=== PATIENT | female | born 1995 | race Two or more races ===

== ENCOUNTER 2017-11-15 08:46 | Emergency (ER) | payer BC, MEDICAID ==
[~2017-11-15] VITALS: Ht 162.6 cm; Wt 83.0 kg
[~2017-11-15 08:46] MED LIST: FLUT16SP2 NS; HYDR50CA; LAMO25TA40; LEVA15HF4 IH; LORA-512 PO; MAGCITRATE PO; MONT10TA21 PO; ONDA4TAB59 PO; PHEN-873 PO; QUET200T; RISP3TAB11
[2017-11-15] MEDS ORDERED: dexamethasone sod phosphate 10mg/ml inj PO STA (09:23)
[2017-11-15] MEDS ORDERED: ondansetron 4mg rapidly disintigrating tab PO ONE (09:25)
[2017-11-15] MEDS ORDERED: CLIN150C2 PO (10:18)
[2017-11-15 10:33] VITALS: BP 113/65
== END 2017-11-15 10:38 | disposition home or self-care (01) ==
LOC: ER 08:48
DX: J03.90 Acute tonsillitis, unspecified (principal); F12.10 Cannabis abuse, uncomplicated; Z79.899 Other long term (current) drug therapy; Z91.018 Allergy to other foods
CPT/HCPCS: 87081; 87880; 99284; J1100

== ENCOUNTER 2019-02-13 10:38 | Emergency (ER) | payer BC ==
[~2019-02-13] VITALS: Ht 160 cm; Wt 63.6 kg
[~2019-02-13 10:38] MED LIST changes: -MAGCITRATE PO; +MAGN296S68 PO; +PHEN-786 PO; -PHEN-873 PO
[2019-02-13 10:53] VITALS: BP 125/71
[2019-02-13 12:19] LABS: URINE HCG NEGATIVE (NEG)
--- NOTE | 2019-02-13 12:29 | NUR ---
BROTHER CALLED FROM [facility],
--- NOTE | 2019-02-13 12:30 | NUR ---
HE WOULD LIKE A PHONE CALL PRIOR TO HER DISCHARGE
== END 2019-02-13 12:42 | disposition home or self-care (01) ==
LOC: ER 10:39
DX: N91.2 Amenorrhea, unspecified (principal); F12.90 Cannabis use, unspecified, uncomplicated; Z98.890 Other specified postprocedural states; Z91.018 Allergy to other foods; Z79.899 Other long term (current) drug therapy
CPT/HCPCS: 81025; 99283

== ENCOUNTER 2020-02-18 21:58 | Inpatient (IN) | payer BC, MEDICAID ==
[~2020-02-18] VITALS: Ht 160 cm; Wt 57.3 kg
[~2020-02-18 21:58] MED LIST changes: -QUET200T; +QUET200T PO; -RISP3TAB11; +RISP3TAB11 PO
[2020-02-18] MEDS ORDERED: traZODone 50mg tablet PO PRN (22:10)
[2020-02-18] MEDS ORDERED: acetaminophen 325mg tablet PO PRN (22:10)
[2020-02-18] MEDS ORDERED: hydrOXYzine 25 MG tablet PO PRN (22:10)
[2020-02-18] MEDS ORDERED: mag hydrox/Alum hydrox/simeth 30ml oral suspension PO PRN (22:10)
[2020-02-18] MEDS ORDERED: magnesium hydroxide 30ml (MOM) UD suspension PO PRN (22:10)
[2020-02-18] MEDS ORDERED: LORazepam 1 MG tablet PO PRN (22:10)
[2020-02-18] MEDS ORDERED: quetiapine 100mg tablet PO PRN (22:10)
[2020-02-18] MEDS ORDERED: loperamide 2mg capsule PO PRN (22:10)
--- NOTE | 2020-02-18 22:23 | NUR ---
Admission Note: Patient was brought from [facility] after being placed on 5150 for Grave Disability. Pt was brought in by police after breaking into a cabin. Police stated that she was naked and soaking wet, making delusional statements about her body being controlled by her mom and brother. Pt was combative in the hospital and broke a firehydrant glass case. Pt arrived at 2210 and was asleep when she arrived. Pt would not wake up for assessments as she was medicated by Hospital staff in [place].
[2020-02-19] MEDS: acetaminophen 325mg tablet PO PRN (07:41)
[2020-02-19 07:56] LABS: HEMOGLOBIN A1C 5.3 % (4.5-6.2)
[2020-02-19 08:00] VITALS: BP 128/76
[2020-02-19 08:06] LABS: CHOL/HDL RATIO 3.7 (0.00-4.99); CHOLESTEROL 147 MG/DL (0-200); HDL CHOLESTEROL 40 MG/DL (35-60); LDL CHOLESTEROL 89 MG/DL (50-100); TRIGLYCERIDES 51 MG/DL (20-135)
[2020-02-19] MEDS: LORazepam 1 MG tablet PO PRN ×2 (10:55→23:32)
[2020-02-19] MEDS ORDERED: fluticasone nasal spray 16GM bottle NS PRN (13:25)
[2020-02-19] MEDS ORDERED: albuterol 2.5 MG/3 ML nebule NEB PRN (13:30)
[2020-02-19] MEDS ORDERED: ondansetron 4mg rapidly disintigrating tab PO PRN (15:30)
[2020-02-19 17:07] LABS: BASOPHILS # (AUTO) 0.1 X10'3 (0-0.2); BASOPHILS % (AUTO) 0.8 % (0-1); EOSINOPHILS # (AUTO) 0.1 X10'3 (0-0.9); EOSINOPHILS % (AUTO) 0.6 % (0-6); HEMATOCRIT 38.8 % (35.0-45.0); LYMPHOCYTES # (AUTO) 2.8 X10'3 (1.1-4.8); LYMPHOCYTES % (AUTO) 27.8 % (21-51); MEAN CORPUSCULAR HEMOGLOBIN 29.8 PG (27.0-31.0); MEAN CORPUSCULAR HGB CONC 33.4 g/dL (33.0-36.5); MEAN PLATELET VOLUME 8.6 FL (7.4-10.4); MONOCYTES % (AUTO) 9.9 % (2-12); NEUTROPHILS # (AUTO) 6.1 X10'3 (1.8-7.7); NEUTROPHILS % (AUTO) 60.9 % (42-75); PLATELET COUNT 264 X10'3 (140-440); RED BLOOD COUNT 4.36 X10'6 (4.20-5.60); RED CELL DISTRIBUTION WIDTH 12.8 % (11.5-14.5); WHITE BLOOD COUNT 10.1 X10'3 (4.5-11.0)
[2020-02-19] MEDS: diphenhydrAMINE 25mg capsule PO PRN (17:23)
[2020-02-19] MEDS: lurasidone 60mg tablet PO SCH (17:23)
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
[2020-02-19] MEDS ORDERED: ketorolac trometh. 30mg/ml inj. IM ONE ×3 (19:15→22:40)
[2020-02-19 20:08] VITALS: BP 116/74
[2020-02-19] MEDS: traZODone 50mg tablet PO PRN (20:10)
[2020-02-19] MEDS ORDERED: ketorolac trometh inj. 60 MG/2 ML VIAL IM ONE (22:20)
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
[2020-02-20] MEDS: haloperidol 5mg tablet PO PRN ×2 (00:38→20:57)
[2020-02-20] MEDS: diphenhydrAMINE 25mg capsule PO PRN ×2 (00:38→20:15)
[2020-02-20] MEDS: loratadine 10mg tablet PO SCH (07:58)
[2020-02-20] MEDS: acetaminophen 325mg tablet PO PRN ×2 (07:59→16:06)
[2020-02-20] MEDS ORDERED: hydrOXYzine 25 MG tablet PO PRN (09:05)
[2020-02-20 10:55] VITALS: BP 109/67
[2020-02-20] MEDS ORDERED: nicotine 21mg patch - 24 hr TD ONE (11:35)
[2020-02-20] MEDS: busPIRone 5mg tablet PO PRN ×2 (11:50→17:52)
[2020-02-20] MEDS: NICOTINE POLACRILEX 2 MG LOZENGE BC PRN ×2 (14:00→18:57)
[2020-02-20] MEDS: lurasidone 60mg tablet PO SCH (17:53)
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
[2020-02-20 20:00] VITALS: BP 126/76
[2020-02-20] MEDS: traZODone 50mg tablet PO PRN (20:15)
[2020-02-20 20:34] VITALS: BP 123/76
--- NOTE | 2020-02-21 00:55 | NUR ---
NURSING PROGRESS NOTE: Legal hold: 5150 Client on involuntary status for GD Report received from RN with use of SBAR Why are they here: Patient was brought from [facility] after being placed on 5150 for Grave Disability. Pt was brought in by police after breaking into a cabin. Police stated that she was naked and soaking wet, making delusional statements about her body being controlled by her mom and brother. Pt was combative in the hospital and broke a fire extinguisher glass case. Assessment What has happened this shift: Patient was up walking in the gray with little interaction with peers. Pt states during interview that she doing better tolerating some of her peers and feels being here is helping her. She denies having SI/HI and AH/VH. She dose not like the way Ativan sedates her when feeling anxious but the BuSpar and nicotine patch is working well. Pt is cooperative and med compliant. S/I, H/I: Denies A/VH: Denies Sleep: Napped ADL's: Independent Group attendance: N/A Were meds taken: Yes Any med S/E:None Mental Status Exam Appearance: Neat and clean Eye contact: Direct Behavior: Cooperative Speech: Normal rate and rhythm Mood: Anxious Affect: Constricted Thought process: Linear, tangential at times Thought Content: Wants to go home Cognition: A&OX4 Insight: Fair Judgment: Fair Interventions PRN's used: Benadryl,Trazodone,Haldol Therapeutic interventions: 1:1 assessment, established rapport, active listening, reality orientation, medication education, therapeutic environment, q15m safety checks Restraints/seclusion/emergency medication: None Justification of Continued Inpatient Treatment: Requires interruption of current crisis, medication adjustments and a safe and therapeutic environment to prevent further decompensation.
[2020-02-21] MEDS: NICOTINE POLACRILEX 2 MG LOZENGE BC PRN (05:47)
[2020-02-21] MEDS: busPIRone 5mg tablet PO PRN ×2 (06:39→12:47)
[2020-02-21 07:00] VITALS: BP 121/78
[2020-02-21] MEDS: loratadine 10mg tablet PO SCH (07:45)
[2020-02-21] MEDS ORDERED: nicotine 21mg patch - 24 hr TD SCH (08:00)
--- NOTE | 2020-02-21 10:00 | NUR ---
Group Therapy: Process Group This Clinicians goal for this process group were as follows: (1) Share psychoeducation about the cognitive behavioral triangle, specifically regarding the interrelationship of thoughts, feelings, and behaviors. (2) Introduce the concept of thinking errors, or cognitive distortions, as they contribute to unhelpful, unbalanced, and/or irrational thinking. (3) Identify several common cognitive distortions in group. (4) Process with Patients how they relate to the different cognitive distortions that were brought up within the group milieu. Patient identified experiencing the following levels of anxiety, depression, and anger/irritability while present in the group milieu. Anxiety: 03/07 Depression: 11/07 Anger irritability: 02/04 Patient presented as open and cooperative within the group milieu. Per this Clinician's impression, AEB Patient's comments in session, she was aware of how certain thoughts could either contribute to negative, or unwanted feelings, which--in turn--could lead to negative, or maladaptive behaviors. Patient reported that she was feeling some anxiety regarding her insurance situation, and incorporated this into insightful commentary within the group milieu, regarding how negative, unbalanced, unhelpful, or irrational thinking about this situation would not contribute to helping her feel better. She added that sometimes she would engage in negative, "What if..." thinking regarding her insurance situation which lead to increases in her anxiety. Aaron Fajardo MA, ZULEYMA Addendum: 02/21/20 at 1136 by Aaron Fajardo SS Amended: Links added.
--- NOTE | 2020-02-21 11:35 | NUR ---
DCP Presenting Issues: Per consultation w/attending physician, pt's will d/c today as there's no need for continue PHF stay. Attending physician requesting SS assistance w/dcp activities to ensure that pt has access to outpatient services and medication support. Interventions: SS met with pt and engaged her in dcp activities. Pt reports that she lives in [place] and will return to her sister's home following d/c. SS inquired about pt's health insurance, pt reports that she no longer has insurance thru her employer because she no longer works with that employer. Pt currently makes 14.50/hr and about 5917-3235/month. SS had t/c with [facility], per t/c [facility] will meet w/pt and have her complete an application for MediCal. SS also had t/c with [facility], to coordinate post-hospital f/u with PMD & referral to the PCN. Per t/c a triage nurse will rt SS call to schedule appointment for pt. SS consulted with attending physician re pt's access to samples of Latuda via [facility], per consultation, Dr. Smith will contact Dr. Fuentes @ [facility] to request for samples for pt. Pt's sister will pick her up @ 1:00 PM Addendum: 02/21/20 at 1209 by Susan Schreiber SS Amended: Links added.
[2020-02-21] MEDS ORDERED: LURA40TA3 PO (12:28)
[2020-02-21] MEDS ORDERED: BUSP-28 PO (12:28)
[2020-02-21] MEDS ORDERED: TRAZ-256 PO (12:28)
--- NOTE | 2020-02-21 14:24 | NUR ---
DISCHARGE NOTE: Pt is being discharged home to [facility]. Pt. denies SI. All belongings were inventoried and sent with the patient at discharge. Patient is discharged in stable condition. Pt. is a smoker and does not wish any nicotine replacement. Pt. to follow-up with Dr. Fuentes.
--- NOTE | 2020-02-21 16:52 | NUR ---
Pt's d/c, SS referral's closed. Susan Schreiber, [employer] Addendum: 02/21/20 at 1652 by Susan Schreiber SS Amended: Links added.
[2020-02-22 06:14] LABS: A/G RATIO 1.3 (0.7-1.7); ALBUMIN 4.3 g/dL (2.9-4.4); BETA GLOBULIN 0.9 g/dL (0.7-1.3); GAMMA GLOBULIN 1.3 g/dL (0.4-1.8); GLOBULIN, TOTAL 3.2 g/dL (2.2-3.9); M-SPIKE Not Observed g/dL (Not Observed); PROTEIN, TOTAL, SERUM 7.5 g/dL (6.0-8.5)
== END 2020-02-21 13:43 | disposition home or self-care (01) | DRG 753 ==
LOC: ADULT MH 22:00
PROVIDERS: ADMIT Psychiatry & Neurology Psychiatry; ATTEND Psychiatry & Neurology Psychiatry
DX: F31.2 Bipolar disorder, current episode manic severe with psychotic features (principal); F12.90 Cannabis use, unspecified, uncomplicated; J45.909 Unspecified asthma, uncomplicated; M79.18 Myalgia, other site; R11.0 Nausea; F17.210 Nicotine dependence, cigarettes, uncomplicated; Z79.899 Other long term (current) drug therapy; Z91.410 Personal history of adult physical and sexual abuse; Z63.4 Disappearance and death of family member
CPT/HCPCS: 36415; 80061; 83036; 84155; 84165; 85025; J1885; Q0163; Q0177

== ENCOUNTER 2020-03-02 17:19 | Emergency (ER) | payer MEDICAID, OTHER ==
[~2020-03-02] VITALS: Ht 162.6 cm; Wt 65.0 kg
[~2020-03-02 17:19] MED LIST changes: +BUSP-28 PO; -HYDR50CA; -LAMO25TA40; +LURA40TA3 PO; -MAGN296S68 PO; -MONT10TA21 PO; -ONDA4TAB59 PO; -PHEN-786 PO; -QUET200T PO; -RISP3TAB11 PO; +TRAZ-256 PO
--- NOTE | 2020-03-02 18:11 | NUR ---
pt is being very pushy about not wanting to stay here to long and that she needs somthing to eat right now. I told pt she has to wait until she evluated by one of our providers then we can ask them about food. she said ok then asked about going outside for a cigrette and i told her once shes in a bed she can leave and come back unless we discharg her. I also explained to her that she can leave anytime but she will need to sign ama paperwork.
[2020-03-02] MEDS ORDERED: hydrOXYzine 25 MG tablet PO ONE (19:10)
--- NOTE | 2020-03-02 19:27 | NUR ---
pt refused meds "does not want to take anything that will poision her body". Provider made aware
[2020-03-02 19:35] VITALS: BP 101/79
--- NOTE | 2020-03-02 19:55 | NUR ---
pt was discharged and left her medication here latuda and buspirone because she believes it was posioning her body. medications will be disosed of in med room.
== END 2020-03-02 19:37 | disposition home or self-care (01) ==
LOC: ER 17:19
DX: F41.9 Anxiety disorder, unspecified (principal); T50.995A Adverse effect of other drugs, medicaments and biological substances, initial encounter; J45.909 Unspecified asthma, uncomplicated; R56.9 Unspecified convulsions; F31.9 Bipolar disorder, unspecified; F17.200 Nicotine dependence, unspecified, uncomplicated; F12.90 Cannabis use, unspecified, uncomplicated; Z72.89 Other problems related to lifestyle; Z91.018 Allergy to other foods; Z79.899 Other long term (current) drug therapy; Y92.89 Other specified places as the place of occurrence of the external cause
CPT/HCPCS: 99281

== ENCOUNTER 2020-05-12 11:14 | Emergency (ER) | payer SELFPAY ==
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
--- NOTE | 2020-05-12 12:16 | NUR ---
i called rpd to let them know that she was spining and if they got other people to call in about her they may want to contact her.
== END 2020-05-12 12:17 | disposition left against medical advice (07) ==
LOC: EEVIPCON 11:15 → ER 11:15
DX: Z53.21 Procedure and treatment not carried out due to patient leaving prior to being seen by health care provider (principal)

== ENCOUNTER 2022-08-24 19:28 | Inpatient (IN) | payer MEDICAID, OTHER ==
[~2022-08-24] VITALS: Ht 162.6 cm; Wt 110.6 kg
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
[~2022-08-24 19:28] MED LIST changes: +LURA40TA2 PO; -LURA40TA3 PO; +calcium chloride 100 MG/1 ML inj IV ONE; +epiNEPHrine 0.1mg/ml 10ml syringe ONE; +rocuronium 10mg/ml inj IV ONE; +sodium bicarbonate (8.4%) 1 mEq/ml syringe ONE
[2022-08-24] MEDS ORDERED: epiNEPHrine 5 MG in NS 250ml IV.SOLN IV SCH (19:45)
[2022-08-24] MEDS: sodium bicarbonate (8.4%) inj. 50 MEQ in dextrose 5%-water 1,000 ML IV SCH (20:19)
[2022-08-24 20:22] VITALS: BP 184/129
[2022-08-24 20:42] LABS: ALANINE AMINOTRANSFERASE 107 U/L (12-78); ALBUMIN 2.1 G/DL (3.4-5.0); ALBUMIN/GLOBULIN RATIO 0.8 (1.1-1.5); ALKALINE PHOSPHATASE 96 IU/L (46-116); ANION GAP 24 (8-16); ASPARTATE AMINO TRANSFERASE 132 U/L (10-37); BLOOD UREA NITROGEN 12 MG/DL (7-18); BUN/CREATININE RATIO 9.4 (6.6-38.0); CALCIUM 8.7 MG/DL (8.5-10.1); CHLORIDE 109 MMOL/L (99-107); CREATININE 1.28 MG/DL (0.40-0.90); GLUCOSE 434 MG/DL (70-104); SODIUM 149 MMOL/L (135-145); TOTAL CARBON DIOXIDE 15.6 MMOL/L (24-32); TOTAL PROTEIN 4.8 G/DL (6.4-8.2); eGFR 50 ML/MIN
[2022-08-24 20:49] LABS: BILIRUBIN,TOTAL 0.1 MG/DL (0.1-1.0); ETHANOL < 0.010 GM/DL (0.0-0.010); POTASSIUM 4.3 MMOL/L (3.5-5.1)
[2022-08-24 21:18] LABS: HEMATOCRIT 30.7 % (35.0-45.0); HEMOGLOBIN 10.1 g/dl (12.0-16.0); MEAN CORPUSCULAR HEMOGLOBIN 27.9 PG (27.0-31.0); MEAN CORPUSCULAR HGB CONC 32.8 g/dL (33.0-36.5); MEAN CORPUSCULAR VOLUME 85.1 FL (78-98); MEAN PLATELET VOLUME 8.3 FL (7.4-10.4); PLATELET COUNT 170 X10'3 (140-440); RED BLOOD COUNT 3.61 X10'6 (4.20-5.60); RED CELL DISTRIBUTION WIDTH 15.1 % (11.5-14.5); WHITE BLOOD COUNT 19.8 X10'3 (4.5-11.0)
[2022-08-24] MEDS ORDERED: methylPREDNISolone sod succ 125mg/2ml vial IV STA (21:18)
[2022-08-24] MEDS ORDERED: metroNIDAZOLE-Flagyl 500mg/NS 100 ML IV STA (21:18)
[2022-08-24 21:24] LABS: LYMPHOCYTES % (AUTO) 43.6 % (21-51); MONOCYTES % (AUTO) 3.2 % (2-12); NEUTROPHILS % (AUTO) 52.2 % (42-75)
[2022-08-24 21:25] LABS: BASOPHILS % (AUTO) 0 % (0-1); EOSINOPHILS # (AUTO) 0.2 X10'3 (0-0.9); LYMPHOCYTES # (AUTO) 8.6 X10'3 (1.1-4.8); MONOCYTES # (AUTO) 0.6 X10'3 (0-0.9); NEUTROPHILS # (AUTO) 10.3 X10'3 (1.8-7.7)
[2022-08-24] MEDS ORDERED: ampicillin/sulbac 3gm/NS 100ml 100 ML IV SCH (21:30)
[2022-08-24 21:37] VITALS: BP 154/118
[2022-08-24 22:12] LABS: ANISOCYTOSIS 1+; NUCLEATED RED BLOOD CELLS 1 /100WBC (0-0); PLATELET ESTIMATE NORMAL; TOTAL CELLS COUNTED 100
[2022-08-24] MEDS ORDERED: NORepinephrine 8mg/ 250ml NS 250 ML IV ONE (22:16)
[2022-08-24] MEDS: normal saline 1000ml 1,000 ML IV SCH (22:20)
[2022-08-24] MEDS ORDERED: LIDOcaine 2% 10ml TOPICAL JELLY (Urojet) TP ONE (22:20)
[2022-08-24] MEDS ORDERED: magnesium hydroxide 30ml (MOM) UD suspension PO PRN (22:20)
[2022-08-24] MEDS ORDERED: ondansetron/PF 4mg/2ml inj IV PRN (22:20)
[2022-08-24] MEDS ORDERED: acetaminophen 325mg tablet PO PRN ×2 (22:20)
--- NOTE | 2022-08-24 22:24 | NUR ---
Per ER MD, 100 mg rocuronium administered for sedation. Per respiratory, pt appears to be fighting the vent.
[2022-08-24] MEDS ORDERED: PERFLUTREN PROTEIN-A MICROSPHR (Optison) 0.22 MG/ML 3ML VIAL IV PRN (22:30)
[2022-08-24 23:13] VITALS: BP 97/58
[2022-08-24] MEDS ORDERED: CISatracurium **Bolus** 2 mg/ml inj IV PRN (23:25)
[2022-08-24] MEDS ORDERED: CISatracurium besylate inj. 100 MG in normal saline 100ml IV soln 90 ML IV PRN (23:25)
[2022-08-25] VITALS (34 sets, daily range): BP systolic 82–132; BP diastolic 26–73
[2022-08-25 00:24] LABS: ABG BASE EXCESS -17.6 mmol/L (-2.0-2.0); ABG HCO3 16.2 mmol/L (22.0-26.0); ABG OXYGEN SATURATION 60.9 % (94-97); ABG PCO2 (T) 67.7 mmHg (32.0-45.0); ABG PO2 (T) 31.7 mmHg (75.0-100.0); ALLEN'S TEST Modified; FMetHb 0.3 % (0.0-1.5); FO2Hb 60.7 % (94-97); PATIENT TEMPERATURE 32.4; PEEP 10 cm H2O; RESPIRATORY RATE 28 b/min; TIDAL VOLUME 400 mL
[2022-08-25] MEDS: epiNEPHrine inj 10 MG in normal saline 250ml IV soln 240 ML IV SCH ×2 (01:05→20:18)
[2022-08-25] MEDS: piperacillin/tazo 3.375gm/50ml 50 ML IV SCH ×3 (03:07→17:18)
[2022-08-25 03:12] LABS: APTT 88 SECONDS (22-32)
[2022-08-25 03:13] LABS: D-DIMER > 35.20 MG/L FEU (0-0.50)
[2022-08-25 03:20] LABS: ALANINE AMINOTRANSFERASE 671 U/L (12-78); ALBUMIN 2.4 G/DL (3.4-5.0); ALBUMIN/GLOBULIN RATIO 0.8 (1.1-1.5); ALKALINE PHOSPHATASE 372 IU/L (46-116); ANION GAP 22 (8-16); BILIRUBIN,TOTAL 0.5 MG/DL (0.1-1.0); BLOOD UREA NITROGEN 17 MG/DL (7-18); BUN/CREATININE RATIO 9.6 (6.6-38.0); CALCIUM 7.3 MG/DL (8.5-10.1); CHLORIDE 106 MMOL/L (99-107); CREATININE 1.77 MG/DL (0.40-0.90); GLUCOSE 447 MG/DL (70-104); MAGNESIUM 2.8 MG/DL (1.5-2.4); SODIUM 147 MMOL/L (135-145); TOTAL CARBON DIOXIDE 18.8 MMOL/L (24-32); TOTAL PROTEIN 5.4 G/DL (6.4-8.2); eGFR 34 ML/MIN
[2022-08-25 03:23] LABS: PHOSPHORUS 12.2 MG/DL (2.3-4.5); POTASSIUM 3.9 MMOL/L (3.5-5.1)
[2022-08-25 03:24] LABS: ASPARTATE AMINO TRANSFERASE 1116 U/L (10-37)
--- NOTE | 2022-08-25 03:37 | NUR ---
[facility] contacted to find possible next of kin. Possible relative; Edvin StringerMaeganRae 05/24/1969. [phone]. [id number], [address] . [facility].
[2022-08-25 03:43] LABS: ABG BASE EXCESS -17.5 mmol/L (-2.0-2.0); ABG HCO3 13.6 mmol/L (22.0-26.0); ABG OXYGEN SATURATION 87.2 % (94-97); ABG PCO2 (T) 50.3 mmHg (32.0-45.0); ABG PO2 (T) 53.3 mmHg (75.0-100.0); ALLEN'S TEST POSITIVE; FCOHb 0.3 % (0.0-3.9); FMetHb 0.4 % (0.0-1.5); FO2Hb 86.6 % (94-97); PATIENT TEMPERATURE 34.7; PEEP 13 cm H2O; RESPIRATORY RATE 28 b/min; TIDAL VOLUME 400 mL; TOTAL HEMOGLOBIN 12.6 G/dl (12.0-16.0)
[2022-08-25 03:56] LABS: HEMATOCRIT 36.8 % (35.0-45.0); HEMOGLOBIN 11.9 g/dl (12.0-16.0); MEAN CORPUSCULAR HEMOGLOBIN 27.5 PG (27.0-31.0); MEAN CORPUSCULAR HGB CONC 32.5 g/dL (33.0-36.5); MEAN CORPUSCULAR VOLUME 84.8 FL (78-98); MEAN PLATELET VOLUME 7.5 FL (7.4-10.4); PLATELET COUNT 413 X10'3 (140-440); RED BLOOD COUNT 4.34 X10'6 (4.20-5.60); RED CELL DISTRIBUTION WIDTH 15.3 % (11.5-14.5)
[2022-08-25 04:01] LABS: WHITE BLOOD COUNT 50.1 X10'3 (4.5-11.0)
[2022-08-25 04:02] LABS: LYMPHOCYTES % (AUTO) 17.4 % (21-51); MONOCYTES % (AUTO) 1.4 % (2-12); NEUTROPHILS % (AUTO) 80.1 % (42-75)
[2022-08-25 04:05] LABS: BASOPHILS # (AUTO) 0.2 X10'3 (0-0.2); BASOPHILS % (AUTO) 0.7 % (0-1); EOSINOPHILS # (AUTO) 0.2 X10'3 (0-0.9); EOSINOPHILS % (AUTO) 0.4 % (0-6); LYMPHOCYTES # (AUTO) 8.5 X10'3 (1.1-4.8); MONOCYTES # (AUTO) 0.7 X10'3 (0-0.9); NEUTROPHILS # (AUTO) 38.8 X10'3 (1.8-7.7)
--- NOTE | 2022-08-25 04:17 | NUR ---
multiple attempts to reach Pts mother Phone numbers on record are [phone], , , unable to leave messages as voice mail not est up.
--- NOTE | 2022-08-25 04:34 | NUR ---
Spoke to Dr Mclaughlin reviewing labs including but not limited to WBC of 50.1, Plt 413, glucose of 442, trop 7157, ptt 88 and d-dimer of 35.2. reviewed current ventilator settings and ABG, reviewed that I am un able to reach a next of kin, no new orders at this time
--- NOTE | 2022-08-25 04:46 | NUR ---
Call placed to [facility], Reference number [id number]. They will be sending a care support representative to evaluate pt.
[2022-08-25] MEDS: sodium bicarbonate (8.4%) inj. 50 MEQ in dextrose 5%-water 1,000 ML IV SCH (05:28)
[2022-08-25] MEDS: NORepinephrine 8mg/ 250ml NS 250 ML IV PRN ×2 (05:29→17:12)
--- NOTE | 2022-08-25 05:35 | NUR ---
due to the inability to obtain a urine sample, blood work sent for send out drug screening
--- NOTE | 2022-08-25 06:15 | NUR ---
report given to rec rn plan of care reviewed
[2022-08-25] MEDS: enoxaparin 40mg/0.4ml syringe SUBCUT SCH (08:00)
[2022-08-25 08:06] LABS: BASOPHILS # (AUTO) 0.1 X10'3 (0-0.2); BASOPHILS % (AUTO) 0.2 % (0-1); EOSINOPHILS % (AUTO) 0.1 % (0-6); MEAN PLATELET VOLUME 7.6 FL (7.4-10.4)
[2022-08-25 08:09] LABS: LYMPHOCYTES # (AUTO) 3.1 X10'3 (1.1-4.8); LYMPHOCYTES % (AUTO) 6.5 % (21-51); MONOCYTES # (AUTO) 1.8 X10'3 (0-0.9); MONOCYTES % (AUTO) 3.7 % (2-12); NEUTROPHILS # (AUTO) 42.9 X10'3 (1.8-7.7); NEUTROPHILS % (AUTO) 89.5 % (42-75); PLATELET COUNT 408 X10'3 (140-440); RED CELL DISTRIBUTION WIDTH 16.5 % (11.5-14.5)
[2022-08-25 08:15] LABS: ABG BASE EXCESS -17.3 mmol/L (-2.0-2.0); ABG OXYGEN SATURATION 94.7 % (94-97); ABG PCO2 (T) 47.3 mmHg (32.0-45.0); ABG PO2 (T) 77.1 mmHg (75.0-100.0); ALLEN'S TEST POSITIVE; FCOHb 0.3 % (0.0-3.9); FMetHb 0.4 % (0.0-1.5); PATIENT TEMPERATURE 36.1; PEEP 15 cm H2O; RESPIRATORY RATE 28 b/min; TIDAL VOLUME 450 mL; TOTAL HEMOGLOBIN 12.1 G/dl (12.0-16.0)
[2022-08-25 08:17] LABS: ALANINE AMINOTRANSFERASE 748 U/L (12-78); ALBUMIN 2.4 G/DL (3.4-5.0); ALBUMIN/GLOBULIN RATIO 0.9 (1.1-1.5); ALKALINE PHOSPHATASE 258 IU/L (46-116); ANION GAP 21 (8-16); BILIRUBIN,TOTAL 0.7 MG/DL (0.1-1.0); BLOOD UREA NITROGEN 24 MG/DL (7-18); BUN/CREATININE RATIO 9.9 (6.6-38.0); CALCIUM 6.8 MG/DL (8.5-10.1); CHLORIDE 105 MMOL/L (99-107); CREATININE 2.43 MG/DL (0.40-0.90); MAGNESIUM 2.1 MG/DL (1.5-2.4); POTASSIUM 3.4 MMOL/L (3.5-5.1); SODIUM 144 MMOL/L (135-145); TOTAL CARBON DIOXIDE 17.6 MMOL/L (24-32); TOTAL PROTEIN 5.1 G/DL (6.4-8.2); eGFR 24 ML/MIN
[2022-08-25 08:20] LABS: ASPARTATE AMINO TRANSFERASE 1385 U/L (10-37); GLUCOSE 511 MG/DL (70-104); PHOSPHORUS 9.3 MG/DL (2.3-4.5)
[2022-08-25] MEDS ORDERED: dextrose 50%-water 50ml dispensing syringe IV PRN (08:20)
[2022-08-25] MEDS: Insulin Reg/NS 100units/100mL 100 ML IV SCH ×3 (08:25→23:09)
[2022-08-25 08:39] LABS: HEMATOCRIT 34.1 % (35.0-45.0); HEMOGLOBIN 10.9 g/dl (12.0-16.0); MEAN CORPUSCULAR HEMOGLOBIN 26.9 PG (27.0-31.0); MEAN CORPUSCULAR HGB CONC 31.9 g/dL (33.0-36.5); MEAN CORPUSCULAR VOLUME 84.4 FL (78-98); RED BLOOD COUNT 4.05 X10'6 (4.20-5.60); WHITE BLOOD COUNT 50.7 X10'3 (4.5-11.0)
[2022-08-25 08:49] LABS: APTT 44 SECONDS (22-32)
[2022-08-25 09:05] LABS: ANISOCYTOSIS 1+; PLATELET ESTIMATE NORMAL; TOTAL CELLS COUNTED 100
[2022-08-25 09:11] LABS: NUCLEATED RED BLOOD CELLS 1 /100WBC (0-0)
[2022-08-25 09:12] LABS: BURR CELLS FEW; POIKILOCYTOSIS FEW; SCHISTOCYTES FEW
[2022-08-25 09:13] LABS: POLYCHROMASIA FEW
[2022-08-25] MEDS ORDERED: sodium bicarbonate (8.4%) inj. 1 MEQ/ML ML ONE ×2 (10:13→13:30)
[2022-08-25] MEDS: famotidine/PF 10 mg/ml inj IV SCH ×2 (10:38→20:18)
[2022-08-25] MEDS ORDERED: sodium bicarbonate (8.4%) inj. 150 MEQ in dextrose 5%-water 1,000 ML IV SCH (10:47)
--- NOTE | 2022-08-25 11:00 | NUR ---
Initial: Pt s/p cardiac arrest in the field, now intubated. Per MD, in discussion w/ donor network and concern for brain . Pt receiving NaBicarb/D5 at 100ml/hr (408kcals). TF recs below in case to begin TF. No wounds noted. Will continue to monitor. Recs: 1. IF TF; Continuous TF using Vital HP at 60ml/hr goal to provide 1440ml volume, 1440kcals, 126g protein, 1204ml free water 2. IF TF; Additional water flush 75ml Q4H 3. IF TF; PALB Q / 4. Routine bowel care 5. Daily wts Addendum: 08/25/22 at [address] Amended: Links added.
[2022-08-25] MEDS: sodium bicarbonate (8.4%) inj. 150 MEQ in dextrose 5%-water 850 ML IV SCH ×3 (11:07→23:49)
--- NOTE | 2022-08-25 11:35 | NUR ---
Wound care note: Wound care was asked to see patient for a low roland skin assessment. Patient is being evaluated by donor network. I spoke with bedside RN Pati Camacho. No WOC needs at this time. Please notify wound care if any further needs arise.
[2022-08-25] MEDS: normal saline 1000ml 1,000 ML IV SCH (11:40)
[2022-08-25 11:43] LABS: RESPIRATORY RATE 28 b/min; TIDAL VOLUME 400 mL
[2022-08-25 11:44] LABS: ABG PCO2 (T) 129.1 mmHg (32.0-45.0); ABG PO2 (T) 46.4 mmHg (75.0-100.0)
[2022-08-25 11:45] LABS: ABG OXYGEN SATURATION 54.9 % (94-97); FCOHb 0.5 % (0.0-3.9); FMetHb 0.1 % (0.0-1.5); FO2Hb 54.6 % (94-97); TOTAL HEMOGLOBIN 11.5 G/dl (12.0-16.0)
[2022-08-25] MEDS: insulin Lispro (HumaLOG) vial - multi-dose SQ SCH ×2 (12:00→17:00)
[2022-08-25 13:00] LABS: ABG BASE EXCESS -14.1 mmol/L (-2.0-2.0); ABG HCO3 15.2 mmol/L (22.0-26.0); ABG OXYGEN SATURATION 92.9 % (94-97); ABG PCO2 (T) 48.2 mmHg (32.0-45.0); ALLEN'S TEST POSITIVE; FCOHb 0.3 % (0.0-3.9); FMetHb 0.5 % (0.0-1.5); FO2Hb 92.2 % (94-97); PATIENT TEMPERATURE 36.1; RESPIRATORY RATE 28 b/min; TIDAL VOLUME 400 mL; TOTAL HEMOGLOBIN 11.7 G/dl (12.0-16.0)
[2022-08-25] MEDS ORDERED: UNABLE TO OBTAIN (15:31)
[2022-08-25 15:57] LABS: ABG BASE EXCESS -10.6 mmol/L (-2.0-2.0); ABG OXYGEN SATURATION 95.8 % (94-97); ABG PCO2 (T) 42.7 mmHg (32.0-45.0); ABG PO2 (T) 76.8 mmHg (75.0-100.0); ALLEN'S TEST POSITIVE; FCOHb 0.3 % (0.0-3.9); FMetHb 0.5 % (0.0-1.5); PEEP 15 cm H2O; RESPIRATORY RATE 28 b/min; TIDAL VOLUME 400 mL; TOTAL HEMOGLOBIN 11.5 G/dl (12.0-16.0)
--- NOTE | 2022-08-25 18:35 | NUR ---
I have received report and assumed care of pt, reviewed Labs, test results, Md orders and various tests. EF of 55-60% EEG electrocerebral silent, Titrating Epinephrine and Levophed drip as ordered per MD orders via CVL. Insulin drip in place for glucose control.
--- NOTE | 2022-08-25 21:00 | NUR ---
hs cares complete, frequent turning side to side as tolerated to maintain skin integrity.
[2022-08-26] VITALS (35 sets, daily range): BP systolic 68–129; BP diastolic 33–64
--- NOTE | 2022-08-26 01:00 | NUR ---
no changes in pts condition noted
[2022-08-26] MEDS: piperacillin/tazo 3.375gm/50ml 50 ML IV SCH ×3 (02:02→17:57)
[2022-08-26 02:14] LABS: BASOPHILS # (AUTO) 0.1 X10'3 (0-0.2); BASOPHILS % (AUTO) 0.2 % (0-1); EOSINOPHILS % (AUTO) 0 % (0-6); HEMATOCRIT 28.4 % (35.0-45.0); HEMOGLOBIN 9.2 g/dl (12.0-16.0); LYMPHOCYTES % (AUTO) 8.2 % (21-51); MEAN CORPUSCULAR HEMOGLOBIN 26.7 PG (27.0-31.0); MEAN CORPUSCULAR HGB CONC 32.4 g/dL (33.0-36.5); MEAN CORPUSCULAR VOLUME 82.5 FL (78-98); MEAN PLATELET VOLUME 7.6 FL (7.4-10.4); MONOCYTES # (AUTO) 0.9 X10'3 (0-0.9); MONOCYTES % (AUTO) 2.5 % (2-12); NEUTROPHILS # (AUTO) 32.8 X10'3 (1.8-7.7); NEUTROPHILS % (AUTO) 89.1 % (42-75); RED BLOOD COUNT 3.44 X10'6 (4.20-5.60); RED CELL DISTRIBUTION WIDTH 15.3 % (11.5-14.5)
[2022-08-26] MEDS: NORepinephrine 8mg/ 250ml NS 250 ML IV PRN ×2 (02:23→05:07)
[2022-08-26 02:32] LABS: ALANINE AMINOTRANSFERASE 713 U/L (12-78); ALBUMIN 1.8 G/DL (3.4-5.0); ALBUMIN/GLOBULIN RATIO 0.8 (1.1-1.5); ALKALINE PHOSPHATASE 66 IU/L (46-116); ANION GAP 12 (8-16); ASPARTATE AMINO TRANSFERASE 882 U/L (10-37); BILIRUBIN,TOTAL 0.8 MG/DL (0.1-1.0); BLOOD UREA NITROGEN 36 MG/DL (7-18); BUN/CREATININE RATIO 10.6 (6.6-38.0); CALCIUM 6.5 MG/DL (8.5-10.1); CHLORIDE 105 MMOL/L (99-107); CREATININE 3.39 MG/DL (0.40-0.90); GLUCOSE 92 MG/DL (70-104); MAGNESIUM 1.2 MG/DL (1.5-2.4); PHOSPHORUS 3.6 MG/DL (2.3-4.5); POTASSIUM 3.5 MMOL/L (3.5-5.1); SODIUM 148 MMOL/L (135-145); TOTAL CARBON DIOXIDE 31.1 MMOL/L (24-32); TOTAL PROTEIN 4.2 G/DL (6.4-8.2); eGFR 16 ML/MIN
[2022-08-26 02:53] LABS: WHITE BLOOD COUNT 36.8 X10'3 (4.5-11.0)
[2022-08-26 02:54] LABS: PLATELET COUNT 184 X10'3 (140-440)
[2022-08-26 03:21] LABS: ABG BASE EXCESS 2.1 mmol/L (-2.0-2.0); ABG HCO3 26.4 mmol/L (22.0-26.0); ABG OXYGEN SATURATION 95.4 % (94-97); ABG PCO2 (T) 38.9 mmHg (32.0-45.0); ABG PO2 (T) 71.9 mmHg (75.0-100.0); ALLEN'S TEST Modified; FCOHb 0.3 % (0.0-3.9); FMetHb 0.4 % (0.0-1.5); FO2Hb 94.7 % (94-97); PATIENT TEMPERATURE 36.4; PEEP 15 cm H2O; RESPIRATORY RATE 28 b/min; TIDAL VOLUME 450 mL; TOTAL HEMOGLOBIN 10.1 G/dl (12.0-16.0)
[2022-08-26] MEDS: sodium bicarbonate (8.4%) inj. 150 MEQ in dextrose 5%-water 850 ML IV SCH ×2 (05:08→15:43)
[2022-08-26] MEDS: insulin Lispro (HumaLOG) vial - multi-dose SQ SCH ×2 (06:22→06:24)
[2022-08-26 07:55] LABS: APTT 37 SECONDS (22-32)
[2022-08-26] MEDS: famotidine/PF 10 mg/ml inj IV SCH ×2 (07:56→20:25)
[2022-08-26] MEDS: mineral oil/petrolatum ophthal oint EACHEYE SCH ×2 (07:57→14:00)
[2022-08-26] MEDS: enoxaparin 40mg/0.4ml syringe SUBCUT SCH (08:00)
[2022-08-26] MEDS ORDERED: phenylephrine inj 50 MG in normal saline 250ml IV solN IV SCH (10:45)
[2022-08-26] MEDS ORDERED: vasopressin inj. 40 UNIT in dextrose 5%-water 50ml 38 ML IV SCH (13:35)
[2022-08-26] MEDS ORDERED: VASOPRESSIN IV SCH (13:39)
[2022-08-26] MEDS ORDERED: NORMAL SALINE IV SCH (13:39)
[2022-08-26] MEDS ORDERED: vasopressin inj. 40 UNIT in normal saline 50ml IV soln 38 ML IV SCH (13:42)
[2022-08-26] MEDS ORDERED: magnesium 4gm in 100ml NS 100 ML IV ONE (13:45)
[2022-08-26 14:42] LABS: CREATINE KINASE 1523 U/L (26-192)
[2022-08-26] MEDS ORDERED: NS IV SCH (14:45)
[2022-08-26] MEDS ORDERED: LEVOTHYROXINE IV SCH (14:45)
[2022-08-26 14:53] LABS: BASOPHILS % (AUTO) 0.2 % (0-1); EOSINOPHILS % (AUTO) 0.1 % (0-6); HEMATOCRIT 26.9 % (35.0-45.0); HEMOGLOBIN 8.7 g/dl (12.0-16.0); LYMPHOCYTES # (AUTO) 1.8 X10'3 (1.1-4.8); LYMPHOCYTES % (AUTO) 7.2 % (21-51); MEAN CORPUSCULAR HEMOGLOBIN 26.7 PG (27.0-31.0); MEAN CORPUSCULAR HGB CONC 32.3 g/dL (33.0-36.5); MEAN CORPUSCULAR VOLUME 82.6 FL (78-98); MONOCYTES # (AUTO) 0.5 X10'3 (0-0.9); NEUTROPHILS # (AUTO) 22.8 X10'3 (1.8-7.7); NEUTROPHILS % (AUTO) 90.5 % (42-75); PLATELET COUNT 110 X10'3 (140-440); RED BLOOD COUNT 3.25 X10'6 (4.20-5.60); RED CELL DISTRIBUTION WIDTH 15.5 % (11.5-14.5)
[2022-08-26] MEDS ORDERED: NORepinephrine 8mg/ 250ml NS 250 ML IV PRN (14:55)
[2022-08-26 14:57] LABS: WHITE BLOOD COUNT 25.2 X10'3 (4.5-11.0)
[2022-08-26] MEDS: epiNEPHrine 5 MG in NS 250ml IV.SOLN IV SCH (15:00)
[2022-08-26 15:02] LABS: APTT 39 SECONDS (22-32)
[2022-08-26] MEDS ORDERED: LEVOTHYROXINE SODIUM IV ONE (15:15)
[2022-08-26] MEDS ORDERED: furosemide 40mg/4ml inj IV ONE ×2 (15:20→19:30)
[2022-08-26] MEDS ORDERED: albumin (Human) 5% 250ml 250 ML IV ONE (15:20)
[2022-08-26] MEDS ORDERED: albuterol 2.5 MG/3 ML nebule NEB PRN ×2 (15:25→21:00)
[2022-08-26] MEDS ORDERED: albuterol 2.5 MG/3 ML nebule NEB SCH ×2 (15:25→16:00)
[2022-08-26] MEDS ORDERED: Insulin Reg/NS 100units/100mL 100 ML IV PRN (15:26)
[2022-08-26] MEDS ORDERED: calcium chloride inj. 1,000 MG in normal saline 100ml BAG IV PRN (15:30)
[2022-08-26 15:36] LABS: ALANINE AMINOTRANSFERASE 743 U/L (12-78); ALBUMIN 1.6 G/DL (3.4-5.0); ALBUMIN/GLOBULIN RATIO 0.6 (1.1-1.5); ALKALINE PHOSPHATASE 66 IU/L (46-116); ANION GAP 19 (8-16); ASPARTATE AMINO TRANSFERASE 822 U/L (10-37); BILIRUBIN,DIRECT 0.8 MG/DL (0-0.3); BILIRUBIN,TOTAL 1.1 MG/DL (0.1-1.0); BLOOD UREA NITROGEN 47 MG/DL (7-18); BUN/CREATININE RATIO 10.9 (6.6-38.0); CHLORIDE 101 MMOL/L (99-107); CREATININE 4.33 MG/DL (0.40-0.90); GLUCOSE 105 MG/DL (70-104); LIPASE 1311 U/L (73-393); MAGNESIUM 1.2 MG/DL (1.5-2.4); POTASSIUM 4.5 MMOL/L (3.5-5.1); SODIUM 147 MMOL/L (135-145); TOTAL CARBON DIOXIDE 26.9 MMOL/L (24-32); TOTAL PROTEIN 4.2 G/DL (6.4-8.2); eGFR 12 ML/MIN
[2022-08-26 15:54] LABS: CREATINE KINASE 1271 U/L (26-192)
[2022-08-26 15:55] LABS: AMYLASE 1115 U/L (25-115)
[2022-08-26] MEDS ORDERED: sodium phosphate inj. 30 MMOL in dextrose 5%-water 250 ML IV PRN (16:30)
[2022-08-26] MEDS ORDERED: magnesium 4gm in 100ml NS 100 ML IV PRN (16:30)
[2022-08-26] MEDS ORDERED: magnesium 2GM in 50ml NS 50 ML IV PRN (16:30)
[2022-08-26] MEDS ORDERED: sodium phosphate inj. 15 MMOL in dextrose 5%-water 250 ML IV PRN (16:30)
[2022-08-26] MEDS ORDERED: LEVOTHYROXINE SODIUM 100 MCG/5 ML injection IV ONE (16:35)
[2022-08-26] MEDS: NORMAL SALINE IV SCH (16:46)
[2022-08-26] MEDS: LEVOTHYROXINE IV SCH (16:46)
[2022-08-26] MEDS ORDERED: ipratropium/albuterol 3ml nebule NEB SCH (17:00)
[2022-08-26] MEDS ORDERED: ipratropium 0.5 MG/2.5ML nebule IH SCH ×2 (17:00→19:00)
[2022-08-26] MEDS: WATER IV SCH (17:01)
[2022-08-26] MEDS: DEXTROSE 5% IV SCH (17:01)
[2022-08-26] MEDS: METHYLPREDNISOLONE SOD SUCC IV SCH (17:01)
[2022-08-26 17:13] LABS: ABG BASE EXCESS -2.7 mmol/L (-2.0-2.0); ABG HCO3 25.8 mmol/L (22.0-26.0); ABG OXYGEN SATURATION 91.7 % (94-97); ABG PCO2 (T) 66.6 mmHg (32.0-45.0); ABG PO2 (T) 72.7 mmHg (75.0-100.0); FCOHb 0.3 % (0.0-3.9); FMetHb 0.6 % (0.0-1.5); FO2Hb 90.9 % (94-97); PEEP 8 cm H2O; RESPIRATORY RATE 20 b/min; TIDAL VOLUME 425 mL; TOTAL HEMOGLOBIN 9.5 G/dl (12.0-16.0)
[2022-08-26] MEDS ORDERED: ipratropium/albuterol 3ml nebule ONE (17:20)
[2022-08-26] MEDS ORDERED: ipratropium/albuterol 3ml nebule NEB PRN (17:20)
[2022-08-26] MEDS: polyvinyl alcohol ophthalmic drops 15ml bottle EACHEYE SCH ×5 (17:24→23:52)
[2022-08-26] MEDS ORDERED: glucagon, human recombinant 1mg kit SUBCUT PRN (17:30)
[2022-08-26] MEDS ORDERED: dextrose 50%-water 50ml dispensing syringe IV PRN ×2 (17:30)
[2022-08-26] MEDS ORDERED: POTASSIUM PHOSPHATE IV PRN (17:45)
[2022-08-26] MEDS ORDERED: NORMAL SALINE IV PRN ×2 (17:45)
[2022-08-26] MEDS ORDERED: POTASSIUM PHOSHATE IV PRN (17:45)
[2022-08-26] MEDS ORDERED: potassium phosphate inj 15 MMOL in NS 250ml IV soln 250 ML IV PRN (17:45)
[2022-08-26] MEDS ORDERED: CALCIUM GLUC 1gm/50ml NACL,iso 50 ML IV ONE (18:10)
[2022-08-26] MEDS ORDERED: albumin (human) 25% 100ml IV 100 ML IV ONE ×2 (18:21→19:30)
[2022-08-26] MEDS: NORepinephrine inj. 32 MG in normal saline 250ml IV soln 218 ML IV SCH (18:32)
[2022-08-26 18:36] LABS: ABG BASE EXCESS -4.4 mmol/L (-2.0-2.0); ABG HCO3 22.7 mmol/L (22.0-26.0); ABG OXYGEN SATURATION 92.6 % (94-97); ABG PCO2 (T) 56.1 mmHg (32.0-45.0); ABG PO2 (T) 80.2 mmHg (75.0-100.0); FCOHb 0.3 % (0.0-3.9); FMetHb 0.7 % (0.0-1.5); FO2Hb 91.7 % (94-97); PATIENT TEMPERATURE 38.6; PEEP 8 cm H2O; RESPIRATORY RATE 26 b/min; TIDAL VOLUME 425 mL; TOTAL HEMOGLOBIN 9.3 G/dl (12.0-16.0)
[2022-08-26] MEDS ORDERED: sodium bicarbonate (8.4%) 1 mEq/ml syringe IV ONE (19:00)
[2022-08-26] MEDS ORDERED: sodium bicarbonate (8.4%) inj. 1 MEQ/ML ML ONE (19:03)
[2022-08-26] MEDS: PHENYLEPHRINE IV PRN ×2 (19:21→22:00)
[2022-08-26] MEDS: NORMAL SALINE IV PRN ×2 (19:21→22:00)
[2022-08-26 20:54] LABS: BASOPHILS # (AUTO) 0.1 X10'3 (0-0.2); BASOPHILS % (AUTO) 0.4 % (0-1); EOSINOPHILS % (AUTO) 0.1 % (0-6); LYMPHOCYTES # (AUTO) 2.4 X10'3 (1.1-4.8); LYMPHOCYTES % (AUTO) 11.2 % (21-51); MEAN CORPUSCULAR HEMOGLOBIN 26.6 PG (27.0-31.0); MEAN CORPUSCULAR VOLUME 83.1 FL (78-98); MEAN PLATELET VOLUME 8.4 FL (7.4-10.4); MONOCYTES # (AUTO) 0.8 X10'3 (0-0.9); MONOCYTES % (AUTO) 3.9 % (2-12); NEUTROPHILS # (AUTO) 18.2 X10'3 (1.8-7.7); NEUTROPHILS % (AUTO) 84.4 % (42-75); PLATELET COUNT 87 X10'3 (140-440); RED BLOOD COUNT 2.58 X10'6 (4.20-5.60); RED CELL DISTRIBUTION WIDTH 15.9 % (11.5-14.5); WHITE BLOOD COUNT 21.5 X10'3 (4.5-11.0)
[2022-08-26 20:58] LABS: HEMATOCRIT 21.4 % (35.0-45.0); HEMOGLOBIN 6.9 g/dl (12.0-16.0)
[2022-08-26] MEDS ORDERED: insulin glargine (Lantus) pen - multi-dose SQ SCH (21:00)
[2022-08-26] MEDS: albuterol 2.5 MG/3 ML nebule NEB SCH (21:02)
[2022-08-26] MEDS: ipratropium 0.5 MG/2.5ML nebule IH SCH (21:02)
[2022-08-26 21:06] LABS: APTT 48 SECONDS (22-32)
[2022-08-26 21:13] LABS: ALANINE AMINOTRANSFERASE 579 U/L (12-78); ALBUMIN 2.7 G/DL (3.4-5.0); ALBUMIN/GLOBULIN RATIO 1.2 (1.1-1.5); ALKALINE PHOSPHATASE 64 IU/L (46-116); ANION GAP 24 (8-16); ASPARTATE AMINO TRANSFERASE 639 U/L (10-37); BILIRUBIN,TOTAL 1.3 MG/DL (0.1-1.0); BLOOD UREA NITROGEN 49 MG/DL (7-18); BUN/CREATININE RATIO 10.8 (6.6-38.0); CALCIUM 6.3 MG/DL (8.5-10.1); CHLORIDE 99 MMOL/L (99-107); CREATININE 4.54 MG/DL (0.40-0.90); GLUCOSE 90 MG/DL (70-104); POTASSIUM 5.3 MMOL/L (3.5-5.1); SODIUM 147 MMOL/L (135-145); TOTAL CARBON DIOXIDE 24.5 MMOL/L (24-32); eGFR 12 ML/MIN
[2022-08-26 21:22] LABS: BILIRUBIN,DIRECT 0.9 MG/DL (0-0.3); CKMB RELATIVE INDEX 2.4 RATIO (0-2.5); CREATINE KINASE 981 U/L (26-192); MAGNESIUM 2.4 MG/DL (1.5-2.4); PHOSPHORUS 7.6 MG/DL (2.3-4.5)
[2022-08-26 21:25] LABS: PLATELET ESTIMATE DECREASED; TOTAL CELLS COUNTED 100
[2022-08-26 21:26] LABS: POIKILOCYTOSIS FEW; TOXIC GRANULATION 1+
[2022-08-26 21:27] LABS: SMUDGE CELLS 1+; TOXIC VACUOLATION FEW
[2022-08-26 21:28] LABS: POLYCHROMASIA FEW
[2022-08-27] VITALS (34 sets, daily range): BP systolic 93–138; BP diastolic 34–66
[2022-08-27] MEDS: albuterol 2.5 MG/3 ML nebule NEB SCH ×8 (00:03→21:45)
[2022-08-27 00:08] LABS: ABG BASE EXCESS -6.1 mmol/L (-2.0-2.0); ABG HCO3 20.4 mmol/L (22.0-26.0); ABG OXYGEN SATURATION 91.4 % (94-97); FCOHb 0.3 % (0.0-3.9); FMetHb 0.6 % (0.0-1.5); FO2Hb 90.6 % (94-97); PATIENT TEMPERATURE 37.9; PEEP 8 cm H2O; RESPIRATORY RATE 32 b/min; TIDAL VOLUME 400 mL; TOTAL HEMOGLOBIN 8.2 G/dl (12.0-16.0)
[2022-08-27] MEDS: epiNEPHrine 5 MG in NS 250ml IV.SOLN IV SCH ×3 (00:16→18:48)
[2022-08-27] MEDS ORDERED: furosemide 40mg/4ml inj IV ONE (00:25)
[2022-08-27] MEDS: vasopressin inj. 40 UNIT in normal saline 50ml IV soln 38 ML IV PRN ×2 (00:33→00:34)
[2022-08-27] MEDS: polyvinyl alcohol ophthalmic drops 15ml bottle EACHEYE SCH ×12 (01:26→23:24)
[2022-08-27] MEDS: PHENYLEPHRINE IV PRN ×3 (01:54→11:37)
[2022-08-27] MEDS: NORMAL SALINE IV PRN ×3 (01:54→11:37)
[2022-08-27] MEDS ORDERED: acetaZOLAMIDE IV 500mg inj IV ONE (02:00)
[2022-08-27] MEDS: piperacillin/tazo 3.375gm/50ml 50 ML IV SCH ×3 (02:12→18:49)
[2022-08-27] MEDS: NORepinephrine inj. 32 MG in normal saline 250ml IV soln 218 ML IV SCH (02:13)
[2022-08-27 02:44] LABS: BASOPHILS # (AUTO) 0.1 X10'3 (0-0.2); BASOPHILS % (AUTO) 0.4 % (0-1); EOSINOPHILS % (AUTO) 0.2 % (0-6); HEMOGLOBIN 7.4 g/dl (12.0-16.0); LYMPHOCYTES # (AUTO) 3.3 X10'3 (1.1-4.8); LYMPHOCYTES % (AUTO) 15.4 % (21-51); MEAN CORPUSCULAR HEMOGLOBIN 27.2 PG (27.0-31.0); MEAN CORPUSCULAR HGB CONC 32.3 g/dL (33.0-36.5); MEAN PLATELET VOLUME 8.5 FL (7.4-10.4); MONOCYTES # (AUTO) 0.7 X10'3 (0-0.9); MONOCYTES % (AUTO) 3.1 % (2-12); NEUTROPHILS # (AUTO) 17.2 X10'3 (1.8-7.7); NEUTROPHILS % (AUTO) 80.9 % (42-75); PLATELET COUNT 87 X10'3 (140-440); RED BLOOD COUNT 2.73 X10'6 (4.20-5.60); RED CELL DISTRIBUTION WIDTH 15.6 % (11.5-14.5); WHITE BLOOD COUNT 21.3 X10'3 (4.5-11.0)
[2022-08-27 02:58] LABS: ALANINE AMINOTRANSFERASE 521 U/L (12-78); ALBUMIN 2.4 G/DL (3.4-5.0); ALKALINE PHOSPHATASE 74 IU/L (46-116); ANION GAP 28 (8-16); ASPARTATE AMINO TRANSFERASE 562 U/L (10-37); BILIRUBIN,TOTAL 1.5 MG/DL (0.1-1.0); BLOOD UREA NITROGEN 53 MG/DL (7-18); BUN/CREATININE RATIO 10.7 (6.6-38.0); CALCIUM 6.4 MG/DL (8.5-10.1); CHLORIDE 98 MMOL/L (99-107); CREATININE 4.96 MG/DL (0.40-0.90); GLUCOSE 122 MG/DL (70-104); POTASSIUM 5.4 MMOL/L (3.5-5.1); SODIUM 147 MMOL/L (135-145); TOTAL CARBON DIOXIDE 20.8 MMOL/L (24-32); TOTAL PROTEIN 4.8 G/DL (6.4-8.2); eGFR 10 ML/MIN
[2022-08-27 03:10] LABS: CKMB RELATIVE INDEX 1.8 RATIO (0-2.5); CREATINE KINASE 903 U/L (26-192); MAGNESIUM 2.3 MG/DL (1.5-2.4); PHOSPHORUS 8.8 MG/DL (2.3-4.5)
[2022-08-27 03:18] LABS: APTT 52 SECONDS (22-32)
[2022-08-27] MEDS: ipratropium 0.5 MG/2.5ML nebule IH SCH ×4 (03:18→19:39)
[2022-08-27 03:27] LABS: ABG BASE EXCESS -6.6 mmol/L (-2.0-2.0); ABG HCO3 19.3 mmol/L (22.0-26.0); ABG OXYGEN SATURATION 93.7 % (94-97); ABG PCO2 (T) 42.4 mmHg (32.0-45.0); ABG PO2 (T) 80.3 mmHg (75.0-100.0); FCOHb 0.3 % (0.0-3.9); FMetHb 0.6 % (0.0-1.5); FO2Hb 92.9 % (94-97); PEEP 8 cm H2O; RESPIRATORY RATE 32 b/min; TIDAL VOLUME 400 mL; TOTAL HEMOGLOBIN 8.4 G/dl (12.0-16.0)
--- NOTE | 2022-08-27 06:13 | NUR ---
oozing from ear continously noted , still no urine output , temp down at this time , report given to BRITTNY READ.
[2022-08-27] MEDS ORDERED: sodium bicarbonate (8.4%) 1 mEq/ml syringe IV ONE (07:10)
[2022-08-27] MEDS ORDERED: sodium bicarbonate (8.4%) inj. 1 MEQ/ML ML ONE (07:11)
[2022-08-27] MEDS ORDERED: DEXTROSE 5% IV SCH (08:00)
[2022-08-27] MEDS ORDERED: pantoprazole 40 MG/NS 100ML add-vantage BAG IV SCH (08:00)
[2022-08-27] MEDS ORDERED: METHYLPREDNISOLONE SOD SUCC IV SCH (08:00)
[2022-08-27] MEDS ORDERED: WATER IV SCH (08:00)
[2022-08-27] MEDS: pantoprazole 40MG/NS 100ML BAG 100 ML IV SCH (08:04)
[2022-08-27] MEDS: NORMAL SALINE IV SCH (08:13)
[2022-08-27] MEDS: LEVOTHYROXINE IV SCH (08:13)
[2022-08-27 08:48] LABS: ABG BASE EXCESS -4.1 mmol/L (-2.0-2.0); ABG HCO3 22.3 mmol/L (22.0-26.0); ABG OXYGEN SATURATION 92.7 % (94-97); ABG PCO2 (T) 48.7 mmHg (32.0-45.0); ABG PO2 (T) 75.2 mmHg (75.0-100.0); FCOHb 0.3 % (0.0-3.9); FMetHb 0.6 % (0.0-1.5); FO2Hb 91.9 % (94-97); PATIENT TEMPERATURE 37.4; PEEP 8 cm H2O; RESPIRATORY RATE 32 b/min; TIDAL VOLUME 400 mL; TOTAL HEMOGLOBIN 7.7 G/dl (12.0-16.0)
[2022-08-27 08:53] LABS: BASOPHILS # (AUTO) 0.1 X10'3 (0-0.2); BASOPHILS % (AUTO) 0.5 % (0-1); EOSINOPHILS # (AUTO) 0.1 X10'3 (0-0.9); LYMPHOCYTES # (AUTO) 2.8 X10'3 (1.1-4.8); MEAN CORPUSCULAR VOLUME 83.6 FL (78-98); MONOCYTES % (AUTO) 2.4 % (2-12); RED BLOOD COUNT 2.51 X10'6 (4.20-5.60)
[2022-08-27 08:54] LABS: EOSINOPHILS % (AUTO) 0.4 % (0-6); LYMPHOCYTES % (AUTO) 15.4 % (21-51); MEAN CORPUSCULAR HEMOGLOBIN 27.3 PG (27.0-31.0); MEAN CORPUSCULAR HGB CONC 32.6 g/dL (33.0-36.5); MEAN PLATELET VOLUME 8.6 FL (7.4-10.4); MONOCYTES # (AUTO) 0.4 X10'3 (0-0.9); NEUTROPHILS # (AUTO) 14.9 X10'3 (1.8-7.7); NEUTROPHILS % (AUTO) 81.3 % (42-75); PLATELET COUNT 78 X10'3 (140-440); RED CELL DISTRIBUTION WIDTH 15.5 % (11.5-14.5); WHITE BLOOD COUNT 18.4 X10'3 (4.5-11.0)
[2022-08-27 09:03] LABS: APTT 54 SECONDS (22-32); HEMOGLOBIN 6.8 g/dl (12.0-16.0)
[2022-08-27 09:15] LABS: ALANINE AMINOTRANSFERASE 439 U/L (12-78); ALBUMIN 2.1 G/DL (3.4-5.0); ALBUMIN/GLOBULIN RATIO 0.9 (1.1-1.5); ALKALINE PHOSPHATASE 82 IU/L (46-116); ASPARTATE AMINO TRANSFERASE 485 U/L (10-37); BILIRUBIN,TOTAL 1.4 MG/DL (0.1-1.0); BLOOD UREA NITROGEN 55 MG/DL (7-18); BUN/CREATININE RATIO 10.4 (6.6-38.0); CALCIUM 6.7 MG/DL (8.5-10.1); CKMB RELATIVE INDEX 1.8 RATIO (0-2.5); CREATINE KINASE 827 U/L (26-192); CREATININE 5.31 MG/DL (0.40-0.90); GLUCOSE 134 MG/DL (70-104); MAGNESIUM 2.4 MG/DL (1.5-2.4); TOTAL PROTEIN 4.4 G/DL (6.4-8.2); eGFR 10 ML/MIN
[2022-08-27 09:34] LABS: ANION GAP 27 (8-16); CHLORIDE 100 MMOL/L (99-107); PHOSPHORUS 9.3 MG/DL (2.3-4.5); POTASSIUM 5.1 MMOL/L (3.5-5.1); SODIUM 151 MMOL/L (135-145)
[2022-08-27] MEDS ORDERED: Duosol 4k/NO Calcium 5,000 ML HE SCH (10:20)
[2022-08-27] MEDS ORDERED: calcium chloride inj. 1,000 MG in normal saline 100ml IV soln 100 ML IV PRN (10:20)
[2022-08-27] MEDS ORDERED: magnesium 4gm in 100ml NS 100 ML IV PRN (10:20)
[2022-08-27] MEDS ORDERED: potassium Cl 40MEQ/270ML bag 270 ML IV PRN (10:20)
[2022-08-27] MEDS ORDERED: sodium phosphate inj. 30 MMOL in normal saline 250ml IV soln 250 ML IV PRN (10:20)
[2022-08-27] MEDS: DEXTROSE 5% IV SCH (11:11)
[2022-08-27] MEDS: METHYLPREDNISOLONE SOD SUCC IV SCH (11:11)
[2022-08-27] MEDS: WATER IV SCH (11:11)
[2022-08-27] MEDS ORDERED: gelatin sponge, absorbable (Gelfoam 100) sponge TP ONE (11:15)
[2022-08-27] MEDS: bicarb dialysis sol 2k/0 Ca2+ 5,000 ML HE SCH ×6 (12:49→20:00)
[2022-08-27] MEDS: calcium chloride inj. 10,000 MG in normal saline 500ml IV soln 400 ML IV PRN (12:50)
[2022-08-27] MEDS: citrate dextrose 1000ml IV sol 1,000 ML IV PRN ×2 (12:50→21:38)
[2022-08-27 14:43] LABS: BASOPHILS # (AUTO) 0.1 X10'3 (0-0.2); BASOPHILS % (AUTO) 0.3 % (0-1); EOSINOPHILS # (AUTO) 0.1 X10'3 (0-0.9); EOSINOPHILS % (AUTO) 0.3 % (0-6); HEMATOCRIT 22.3 % (35.0-45.0); HEMOGLOBIN 7.3 g/dl (12.0-16.0); LYMPHOCYTES # (AUTO) 1.5 X10'3 (1.1-4.8); LYMPHOCYTES % (AUTO) 7.8 % (21-51); MEAN CORPUSCULAR HEMOGLOBIN 27.2 PG (27.0-31.0); MEAN CORPUSCULAR HGB CONC 32.7 g/dL (33.0-36.5); MEAN CORPUSCULAR VOLUME 83.4 FL (78-98); MEAN PLATELET VOLUME 8.8 FL (7.4-10.4); MONOCYTES # (AUTO) 0.6 X10'3 (0-0.9); MONOCYTES % (AUTO) 3.1 % (2-12); NEUTROPHILS # (AUTO) 16.9 X10'3 (1.8-7.7); NEUTROPHILS % (AUTO) 88.5 % (42-75); PLATELET COUNT 85 X10'3 (140-440); RED BLOOD COUNT 2.67 X10'6 (4.20-5.60); RED CELL DISTRIBUTION WIDTH 15.5 % (11.5-14.5); WHITE BLOOD COUNT 19.1 X10'3 (4.5-11.0)
[2022-08-27 15:05] LABS: APTT 51 SECONDS (22-32)
[2022-08-27 15:14] LABS: ALANINE AMINOTRANSFERASE 449 U/L (12-78); ALBUMIN 2.2 G/DL (3.4-5.0); ALBUMIN/GLOBULIN RATIO 0.8 (1.1-1.5); ALKALINE PHOSPHATASE 103 IU/L (46-116); ANION GAP 23 (8-16); ASPARTATE AMINO TRANSFERASE 554 U/L (10-37); BILIRUBIN,DIRECT 1.3 MG/DL (0-0.3); BILIRUBIN,TOTAL 1.8 MG/DL (0.1-1.0); BLOOD UREA NITROGEN 52 MG/DL (7-18); BUN/CREATININE RATIO 11.1 (6.6-38.0); CALCIUM 6.8 MG/DL (8.5-10.1); CHLORIDE 100 MMOL/L (99-107); CKMB RELATIVE INDEX 1.2 RATIO (0-2.5); CREATINE KINASE 825 U/L (26-192); CREATININE 4.67 MG/DL (0.40-0.90); GLUCOSE 128 MG/DL (70-104); MAGNESIUM 2.2 MG/DL (1.5-2.4); PHOSPHORUS 8.1 MG/DL (2.3-4.5); POTASSIUM 4.9 MMOL/L (3.5-5.1); SODIUM 148 MMOL/L (135-145); TOTAL CARBON DIOXIDE 25.4 MMOL/L (24-32); TOTAL PROTEIN 4.9 G/DL (6.4-8.2); eGFR 11 ML/MIN
[2022-08-27 16:34] LABS: HEMATOCRIT 22.3 % (35.0-45.0); HEMOGLOBIN 7.3 g/dl (12.0-16.0); MEAN CORPUSCULAR HEMOGLOBIN 27.3 PG (27.0-31.0); MEAN CORPUSCULAR HGB CONC 32.6 g/dL (33.0-36.5); MEAN CORPUSCULAR VOLUME 83.7 FL (78-98); MEAN PLATELET VOLUME 8.8 FL (7.4-10.4); PLATELET COUNT 83 X10'3 (140-440); RED BLOOD COUNT 2.67 X10'6 (4.20-5.60); RED CELL DISTRIBUTION WIDTH 15.5 % (11.5-14.5); WHITE BLOOD COUNT 18.5 X10'3 (4.5-11.0)
[2022-08-27 16:47] LABS: ALBUMIN 2.2 G/DL (3.4-5.0); ANION GAP 23 (8-16); BLOOD UREA NITROGEN 49 MG/DL (7-18); BUN/CREATININE RATIO 11.3 (6.6-38.0); CHLORIDE 100 MMOL/L (99-107); CREATININE 4.32 MG/DL (0.40-0.90); GLUCOSE 137 MG/DL (70-104); PHOSPHORUS 7.7 MG/DL (2.3-4.5); POTASSIUM 4.9 MMOL/L (3.5-5.1); SODIUM 148 MMOL/L (135-145); TOTAL CARBON DIOXIDE 25.3 MMOL/L (24-32); eGFR 12 ML/MIN
[2022-08-27] MEDS: PHENYLephrine 10mg/ml inj. 100 MG in normal saline 250ml IV soln 240 ML IV PRN ×2 (18:00→23:39)
--- NOTE | 2022-08-27 18:25 | NUR ---
Patient in room CICU 2013. I have received report from Pati READ and had the opportunity to ask questions and assume patient care.
[2022-08-27 20:03] LABS: ABG BASE EXCESS -1.6 mmol/L (-2.0-2.0); ABG HCO3 24.3 mmol/L (22.0-26.0); ABG OXYGEN SATURATION 94.7 % (94-97); ABG PCO2 (T) 46.2 mmHg (32.0-45.0); ABG PO2 (T) 80.2 mmHg (75.0-100.0); FCOHb 0.3 % (0.0-3.9); FMetHb 0.5 % (0.0-1.5); FO2Hb 93.9 % (94-97); PATIENT TEMPERATURE 36.5; PEEP 8 cm H2O; RESPIRATORY RATE 32 b/min; TIDAL VOLUME 400 mL; TOTAL HEMOGLOBIN 8.3 G/dl (12.0-16.0)
[2022-08-27 20:37] LABS: BASOPHILS % (AUTO) 0.1 % (0-1); EOSINOPHILS # (AUTO) 0.1 X10'3 (0-0.9); EOSINOPHILS % (AUTO) 0.7 % (0-6); HEMATOCRIT 23.2 % (35.0-45.0); HEMOGLOBIN 7.6 g/dl (12.0-16.0); LYMPHOCYTES # (AUTO) 0.9 X10'3 (1.1-4.8); LYMPHOCYTES % (AUTO) 4.5 % (21-51); MEAN CORPUSCULAR HEMOGLOBIN 27.1 PG (27.0-31.0); MEAN CORPUSCULAR HGB CONC 32.6 g/dL (33.0-36.5); MEAN CORPUSCULAR VOLUME 83.1 FL (78-98); MEAN PLATELET VOLUME 9.1 FL (7.4-10.4); MONOCYTES # (AUTO) 0.5 X10'3 (0-0.9); MONOCYTES % (AUTO) 2.3 % (2-12); NEUTROPHILS # (AUTO) 19.4 X10'3 (1.8-7.7); NEUTROPHILS % (AUTO) 92.4 % (42-75); PLATELET COUNT 87 X10'3 (140-440); RED CELL DISTRIBUTION WIDTH 15.7 % (11.5-14.5)
[2022-08-27 20:52] LABS: ALANINE AMINOTRANSFERASE 447 U/L (12-78); ALBUMIN 2.2 G/DL (3.4-5.0); ALBUMIN/GLOBULIN RATIO 0.7 (1.1-1.5); ALKALINE PHOSPHATASE 119 IU/L (46-116); ANION GAP 20 (8-16); ASPARTATE AMINO TRANSFERASE 574 U/L (10-37); BILIRUBIN,TOTAL 1.9 MG/DL (0.1-1.0); BLOOD UREA NITROGEN 43 MG/DL (7-18); BUN/CREATININE RATIO 11.2 (6.6-38.0); CALCIUM 7.9 MG/DL (8.5-10.1); CHLORIDE 100 MMOL/L (99-107); CREATININE 3.84 MG/DL (0.40-0.90); GLUCOSE 139 MG/DL (70-104); POTASSIUM 4.8 MMOL/L (3.5-5.1); SODIUM 147 MMOL/L (135-145); TOTAL CARBON DIOXIDE 26.9 MMOL/L (24-32); TOTAL PROTEIN 5.3 G/DL (6.4-8.2); eGFR 14 ML/MIN
[2022-08-27 20:55] LABS: APTT 48 SECONDS (22-32)
[2022-08-27 21:03] LABS: BILIRUBIN,DIRECT 1.4 MG/DL (0-0.3); CKMB RELATIVE INDEX 1.2 RATIO (0-2.5); CREATINE KINASE 809 U/L (26-192); MAGNESIUM 2.2 MG/DL (1.5-2.4); PHOSPHORUS 6.4 MG/DL (2.3-4.5)
[2022-08-27 23:42] LABS: CLARITY,URINE SLIGHTLY CLOUDY (Clear); COLOR,URINE YELLOW (Yellow); GLUCOSE, URINE 250 mg/dl (Neg); KETONES,URINE NEGATIVE (Neg); LEUKOCYTE ESTERASE ,URINE TRACE (Neg); NITRITES, URINE NEGATIVE (Neg); OCCULT BLOOD,URINE LARGE (Neg); PROTEIN,URINE 100 mg/dl (Neg); UROBILINOGEN,URINE 0.2 E.U/dL (0.2-1.0)
[2022-08-27 23:55] LABS: UA COLLECTION TYPE FOLEY CATH
[2022-08-27 23:57] LABS: BACTERIA,URINE 2+ /HPF (Neg); MUCUS STRANDS FEW /LPF (Neg); RBC,URINE 20-50 /HPF (0-2); SQUAMOUS EPITHELIAL CELL,UR FEW /LPF (FEW); TOTAL PROTEIN,URINE RANDOM 375.5 MG/DL; TRANSITIONAL EPI CELLS,URINE FEW /HPF
[2022-08-27 23:58] LABS: AMORPHOUS PHOSPHATES 1+
[2022-08-28] VITALS (42 sets, daily range): BP systolic 12–138; BP diastolic 45–66
[2022-08-28] MEDS: vasopressin inj. 40 UNIT in normal saline 50ml IV soln 38 ML IV PRN (00:53)
[2022-08-28] MEDS: polyvinyl alcohol ophthalmic drops 15ml bottle EACHEYE SCH ×12 (01:05→23:02)
[2022-08-28] MEDS: albuterol 2.5 MG/3 ML nebule NEB SCH ×8 (01:37→20:32)
[2022-08-28] MEDS: ipratropium 0.5 MG/2.5ML nebule IH SCH ×4 (01:37→20:32)
[2022-08-28] MEDS: piperacillin/tazo 3.375gm/50ml 50 ML IV SCH ×3 (02:12→19:28)
[2022-08-28] MEDS: citrate dextrose 1000ml IV sol 1,000 ML IV PRN ×5 (02:13→22:05)
[2022-08-28] MEDS: calcium chloride inj. 10,000 MG in normal saline 500ml IV soln 400 ML IV PRN ×2 (02:13→16:00)
[2022-08-28] MEDS: NORMAL SALINE IV SCH (03:07)
[2022-08-28] MEDS: LEVOTHYROXINE IV SCH (03:07)
[2022-08-28 03:24] LABS: ABG BASE EXCESS 4.9 mmol/L (-2.0-2.0); ABG HCO3 30.6 mmol/L (22.0-26.0); ABG OXYGEN SATURATION 97.1 % (94-97); ABG PCO2 (T) 52.4 mmHg (32.0-45.0); ABG PO2 (T) 98.7 mmHg (75.0-100.0); FCOHb 0.3 % (0.0-3.9); FMetHb 0.5 % (0.0-1.5); FO2Hb 96.3 % (94-97); PATIENT TEMPERATURE 37.2; PEEP 8 cm H2O; RESPIRATORY RATE 32 b/min; TIDAL VOLUME 400 mL; TOTAL HEMOGLOBIN 8.6 G/dl (12.0-16.0)
[2022-08-28 03:24] LABS: BASOPHILS % (AUTO) 0.1 % (0-1); EOSINOPHILS # (AUTO) 0.4 X10'3 (0-0.9); EOSINOPHILS % (AUTO) 1.7 % (0-6); HEMOGLOBIN 7.1 g/dl (12.0-16.0); LYMPHOCYTES # (AUTO) 0.8 X10'3 (1.1-4.8); LYMPHOCYTES % (AUTO) 3.7 % (21-51); MEAN CORPUSCULAR HEMOGLOBIN 26.9 PG (27.0-31.0); MEAN CORPUSCULAR HGB CONC 32.5 g/dL (33.0-36.5); MEAN CORPUSCULAR VOLUME 82.9 FL (78-98); MEAN PLATELET VOLUME 8.4 FL (7.4-10.4); MONOCYTES # (AUTO) 0.5 X10'3 (0-0.9); MONOCYTES % (AUTO) 2.2 % (2-12); NEUTROPHILS # (AUTO) 20.7 X10'3 (1.8-7.7); NEUTROPHILS % (AUTO) 92.3 % (42-75); PLATELET COUNT 86 X10'3 (140-440); RED BLOOD COUNT 2.62 X10'6 (4.20-5.60); RED CELL DISTRIBUTION WIDTH 15.9 % (11.5-14.5); WHITE BLOOD COUNT 22.4 X10'3 (4.5-11.0)
[2022-08-28 03:31] LABS: HEMATOCRIT 21.8 % (35.0-45.0)
[2022-08-28 03:40] LABS: APTT 43 SECONDS (22-32)
[2022-08-28 03:49] LABS: ALANINE AMINOTRANSFERASE 396 U/L (12-78); ALBUMIN 2.2 G/DL (3.4-5.0); ALBUMIN/GLOBULIN RATIO 0.7 (1.1-1.5); ALKALINE PHOSPHATASE 136 IU/L (46-116); ANION GAP 17 (8-16); ASPARTATE AMINO TRANSFERASE 611 U/L (10-37); BILIRUBIN,TOTAL 1.9 MG/DL (0.1-1.0); BLOOD UREA NITROGEN 37 MG/DL (7-18); BUN/CREATININE RATIO 11.9 (6.6-38.0); CALCIUM 9.2 MG/DL (8.5-10.1); CHLORIDE 101 MMOL/L (99-107); GLUCOSE 136 MG/DL (70-104); POTASSIUM 4.3 MMOL/L (3.5-5.1); SODIUM 147 MMOL/L (135-145); TOTAL CARBON DIOXIDE 29.4 MMOL/L (24-32); TOTAL PROTEIN 5.4 G/DL (6.4-8.2); eGFR 18 ML/MIN
[2022-08-28 03:50] LABS: BILIRUBIN,DIRECT 1.3 MG/DL (0-0.3); CREATINE KINASE 690 U/L (26-192); MAGNESIUM 2.1 MG/DL (1.5-2.4); PHOSPHORUS 4.5 MG/DL (2.3-4.5)
[2022-08-28] MEDS: bicarb dialysis sol 2k/0 Ca2+ 5,000 ML HE SCH ×13 (04:03→23:12)
[2022-08-28] MEDS: epiNEPHrine 5 MG in NS 250ml IV.SOLN IV SCH ×3 (04:04→22:36)
--- NOTE | 2022-08-28 06:20 | NUR ---
Problems reprioritized. Patient report given, questions answered & plan of care reviewed with Jonel READ.
--- NOTE | 2022-08-28 06:30 | NUR ---
Patient in room CICU 2013. I have received report from Chelo READ and had the opportunity to ask questions and assume patient care.
[2022-08-28] MEDS: pantoprazole 40MG/NS 100ML BAG 100 ML IV SCH (07:26)
[2022-08-28 08:25] LABS: BASOPHILS % (AUTO) 0.2 % (0-1); EOSINOPHILS % (AUTO) 0.2 % (0-6); LYMPHOCYTES # (AUTO) 0.9 X10'3 (1.1-4.8); LYMPHOCYTES % (AUTO) 4.4 % (21-51); MEAN CORPUSCULAR HEMOGLOBIN 26.7 PG (27.0-31.0); MEAN CORPUSCULAR HGB CONC 32.1 g/dL (33.0-36.5); MEAN CORPUSCULAR VOLUME 83.1 FL (78-98); MEAN PLATELET VOLUME 8.7 FL (7.4-10.4); MONOCYTES # (AUTO) 0.5 X10'3 (0-0.9); MONOCYTES % (AUTO) 2.5 % (2-12); NEUTROPHILS # (AUTO) 19.4 X10'3 (1.8-7.7); NEUTROPHILS % (AUTO) 92.7 % (42-75); PLATELET COUNT 83 X10'3 (140-440); RED BLOOD COUNT 2.48 X10'6 (4.20-5.60); RED CELL DISTRIBUTION WIDTH 15.8 % (11.5-14.5)
[2022-08-28 08:26] LABS: ALANINE AMINOTRANSFERASE 365 U/L (12-78); ALBUMIN 2.1 G/DL (3.4-5.0); ALBUMIN/GLOBULIN RATIO 0.7 (1.1-1.5); ALKALINE PHOSPHATASE 140 IU/L (46-116); ANION GAP 17 (8-16); ASPARTATE AMINO TRANSFERASE 598 U/L (10-37); BILIRUBIN,TOTAL 1.9 MG/DL (0.1-1.0); BLOOD UREA NITROGEN 33 MG/DL (7-18); BUN/CREATININE RATIO 11.9 (6.6-38.0); CALCIUM 9.2 MG/DL (8.5-10.1); CHLORIDE 100 MMOL/L (99-107); CREATININE 2.77 MG/DL (0.40-0.90); GLUCOSE 142 MG/DL (70-104); POTASSIUM 4.1 MMOL/L (3.5-5.1); SODIUM 146 MMOL/L (135-145); TOTAL CARBON DIOXIDE 29.5 MMOL/L (24-32); TOTAL PROTEIN 5.3 G/DL (6.4-8.2); eGFR 21 ML/MIN
[2022-08-28 08:28] LABS: HEMOGLOBIN 6.6 g/dl (12.0-16.0)
[2022-08-28 08:29] LABS: HEMATOCRIT 20.6 % (35.0-45.0)
[2022-08-28 08:43] LABS: BILIRUBIN,DIRECT 1.3 MG/DL (0-0.3); CKMB RELATIVE INDEX 0.9 RATIO (0-2.5); CREATINE KINASE 564 U/L (26-192); MAGNESIUM 2.1 MG/DL (1.5-2.4)
[2022-08-28] MEDS: METHYLPREDNISOLONE SOD SUCC IV SCH (08:46)
[2022-08-28] MEDS: WATER IV SCH (08:46)
[2022-08-28] MEDS: DEXTROSE 5% IV SCH (08:46)
[2022-08-28 09:24] LABS: ABG BASE EXCESS 5.8 mmol/L (-2.0-2.0); ABG HCO3 31.9 mmol/L (22.0-26.0); ABG OXYGEN SATURATION 98.4 % (94-97); ABG PCO2 (T) 55.7 mmHg (32.0-45.0); ABG PO2 (T) 128.1 mmHg (75.0-100.0); FCOHb 0.3 % (0.0-3.9); FMetHb 0.4 % (0.0-1.5); FO2Hb 97.7 % (94-97); PATIENT TEMPERATURE 36.6; PEEP 8 cm H2O; RESPIRATORY RATE 30 b/min; TIDAL VOLUME 400 mL; TOTAL HEMOGLOBIN 7.5 G/dl (12.0-16.0)
--- NOTE | 2022-08-28 11:15 | NUR ---
Reassessment: Pt remains intubated, now on CVVH. Nuclear medicine scan consistent with brain per MD note. Per Harlan at [facility] no plans to initiate nutrition support at this time however will revisit need for TF pending definitive time of organ harvesting. Will continue to follow closely. Recommendations: 1. IF TF; Continuous TF using Vital HP with 70 ml/hr goal to provide 1680 ml volume/day, 1680 kcal, 147 g protein, and 1405 mL water 2. IF TF; Additional water flush per physician in view of CVVH 3. IF TF; PALB q Thursday/ 4. Routine bowel care 5. Daily wts Addendum: 08/28/22 at [address] Amended: Links added.
[2022-08-28] MEDS ORDERED: furosemide 40mg/4ml inj IV ONE ×2 (11:20→13:10)
[2022-08-28] MEDS ORDERED: albumin (human) 25% 100 ML IV solution IV ONE (11:20)
[2022-08-28 14:18] LABS: LYMPHOCYTES # (AUTO) 0.8 X10'3 (1.1-4.8); LYMPHOCYTES % (AUTO) 4.9 % (21-51); MEAN CORPUSCULAR HGB CONC 33.5 g/dL (33.0-36.5); MONOCYTES # (AUTO) 0.5 X10'3 (0-0.9); MONOCYTES % (AUTO) 3.4 % (2-12); NEUTROPHILS # (AUTO) 14.2 X10'3 (1.8-7.7)
[2022-08-28 14:20] LABS: BASOPHILS % (AUTO) 0.2 % (0-1); EOSINOPHILS # (AUTO) 0.2 X10'3 (0-0.9); EOSINOPHILS % (AUTO) 1.3 % (0-6); HEMATOCRIT 22.3 % (35.0-45.0); MEAN CORPUSCULAR HEMOGLOBIN 28.1 PG (27.0-31.0); MEAN CORPUSCULAR VOLUME 83.9 FL (78-98); MEAN PLATELET VOLUME 8.7 FL (7.4-10.4); NEUTROPHILS % (AUTO) 90.2 % (42-75); PLATELET COUNT 68 X10'3 (140-440); RED BLOOD COUNT 2.66 X10'6 (4.20-5.60); RED CELL DISTRIBUTION WIDTH 15.5 % (11.5-14.5); WHITE BLOOD COUNT 15.7 X10'3 (4.5-11.0)
--- NOTE | 2022-08-28 14:23 | NUR ---
Update Visitors to see pt separably, boyfriend Sal and long time friend Leslye. Each update on plan for pt. Harlan (DNW) answered questions as well. Additional tests completed per DNW orders.
[2022-08-28 14:27] LABS: HEMOGLOBIN 7.5 g/dl (12.0-16.0)
[2022-08-28 14:35] LABS: ALANINE AMINOTRANSFERASE 337 U/L (12-78); ALBUMIN 2.5 G/DL (3.4-5.0); ALBUMIN/GLOBULIN RATIO 0.8 (1.1-1.5); ALKALINE PHOSPHATASE 140 IU/L (46-116); ANION GAP 11 (8-16); ASPARTATE AMINO TRANSFERASE 560 U/L (10-37); BILIRUBIN,TOTAL 2.3 MG/DL (0.1-1.0); BLOOD UREA NITROGEN 30 MG/DL (7-18); BUN/CREATININE RATIO 12.1 (6.6-38.0); CALCIUM 9.5 MG/DL (8.5-10.1); CHLORIDE 100 MMOL/L (99-107); CREATININE 2.48 MG/DL (0.40-0.90); GLUCOSE 159 MG/DL (70-104); POTASSIUM 3.7 MMOL/L (3.5-5.1); SODIUM 142 MMOL/L (135-145); TOTAL PROTEIN 5.6 G/DL (6.4-8.2); eGFR 23 ML/MIN
[2022-08-28 14:42] LABS: BILIRUBIN,DIRECT 1.5 MG/DL (0-0.3); CKMB RELATIVE INDEX 0.9 RATIO (0-2.5); CREATINE KINASE 419 U/L (26-192); MAGNESIUM 2.2 MG/DL (1.5-2.4); PHOSPHORUS 3.5 MG/DL (2.3-4.5)
--- NOTE | 2022-08-28 14:43 | NUR ---
Bladder: Flushed with 50 cc sterile water. Returned 50 cc slightly yellowish fluid.
[2022-08-28] MEDS: potassium Cl 20mEq/100mL bag 100 ML IV PRN ×4 (15:22→22:14)
[2022-08-28] MEDS: PHENYLephrine 10mg/ml inj. 100 MG in normal saline 250ml IV soln 240 ML IV PRN (16:51)
[2022-08-28 17:17] LABS: ABG BASE EXCESS 6.8 mmol/L (-2.0-2.0); ABG HCO3 31.2 mmol/L (22.0-26.0); ABG OXYGEN SATURATION 98.3 % (94-97); ABG PCO2 (T) 44.4 mmHg (32.0-45.0); ABG PO2 (T) 120.8 mmHg (75.0-100.0); FCOHb 0.3 % (0.0-3.9); FMetHb 0.3 % (0.0-1.5); FO2Hb 97.7 % (94-97); PEEP 8 cm H2O; RESPIRATORY RATE 30 b/min; TIDAL VOLUME 400 mL; TOTAL HEMOGLOBIN 8.6 G/dl (12.0-16.0)
[2022-08-28] MEDS: NORepinephrine inj. 32 MG in normal saline 250ml IV soln 218 ML IV SCH (17:35)
--- NOTE | 2022-08-28 18:24 | NUR ---
Problems reprioritized. Patient report given, questions answered & plan of care reviewed with Emeli READ.
--- NOTE | 2022-08-28 18:30 | NUR ---
Patient in room CICU 2013. I have received report from JACEK Remy and had the opportunity to ask questions and assume patient care.
--- NOTE | 2022-08-28 18:30 | NUR ---
[facility] I have received report from Jonel READ and had the opportunity to ask questions and assume patient care. CVVH running via dialysis catheter. Addendum: 08/28/22 at 1918 by Emeli Abdi RN Amended: Links added.
[2022-08-28 20:31] LABS: BASOPHILS % (AUTO) 0.2 % (0-1); EOSINOPHILS # (AUTO) 0.2 X10'3 (0-0.9); EOSINOPHILS % (AUTO) 1.6 % (0-6); HEMATOCRIT 22.7 % (35.0-45.0); HEMOGLOBIN 7.6 g/dl (12.0-16.0); LYMPHOCYTES # (AUTO) 0.8 X10'3 (1.1-4.8); LYMPHOCYTES % (AUTO) 5.3 % (21-51); MEAN CORPUSCULAR HEMOGLOBIN 27.9 PG (27.0-31.0); MEAN CORPUSCULAR HGB CONC 33.4 g/dL (33.0-36.5); MEAN CORPUSCULAR VOLUME 83.5 FL (78-98); MEAN PLATELET VOLUME 9.1 FL (7.4-10.4); MONOCYTES # (AUTO) 0.4 X10'3 (0-0.9); MONOCYTES % (AUTO) 2.6 % (2-12); NEUTROPHILS # (AUTO) 13.5 X10'3 (1.8-7.7); NEUTROPHILS % (AUTO) 90.3 % (42-75); PLATELET COUNT 62 X10'3 (140-440); RED BLOOD COUNT 2.72 X10'6 (4.20-5.60); RED CELL DISTRIBUTION WIDTH 15.3 % (11.5-14.5); WHITE BLOOD COUNT 14.9 X10'3 (4.5-11.0)
[2022-08-28 20:41] LABS: ALANINE AMINOTRANSFERASE 301 U/L (12-78); ALBUMIN 2.4 G/DL (3.4-5.0); ALBUMIN/GLOBULIN RATIO 0.8 (1.1-1.5); ALKALINE PHOSPHATASE 140 IU/L (46-116); ANION GAP 11 (8-16); ASPARTATE AMINO TRANSFERASE 514 U/L (10-37); BILIRUBIN,TOTAL 2.2 MG/DL (0.1-1.0); BLOOD UREA NITROGEN 26 MG/DL (7-18); BUN/CREATININE RATIO 11.7 (6.6-38.0); CHLORIDE 101 MMOL/L (99-107); CREATININE 2.22 MG/DL (0.40-0.90); GLUCOSE 165 MG/DL (70-104); POTASSIUM 3.5 MMOL/L (3.5-5.1); SODIUM 144 MMOL/L (135-145); TOTAL CARBON DIOXIDE 31.7 MMOL/L (24-32); TOTAL PROTEIN 5.4 G/DL (6.4-8.2); eGFR 26 ML/MIN
[2022-08-28] MEDS: albumin (human) 25% 100ml IV 100 ML IV SCH ×2 (20:59→23:52)
[2022-08-28 21:04] LABS: BILIRUBIN,DIRECT 1.4 MG/DL (0-0.3); CKMB RELATIVE INDEX 0.7 RATIO (0-2.5)
[2022-08-28] MEDS: sodium phosphate inj. 30 MMOL in dextrose 5%-water 250 ML IV PRN (21:37)
--- NOTE | 2022-08-28 22:14 | NUR ---
CVVH running via dialysis catheter, blood warmer turned down to assist with passive rewarming to 35 degrees celsius per donor network orders. Bathed with cool wipes, sheet off, temp decreasing slowly, now: 36.2 degrees celsius at 2217. BP maintained per parameters.
--- NOTE | 2022-08-28 23:23 | NUR ---
Per operating room coordinator, okay to remove 200ml/hr via CVVH if tolerated
[2022-08-29] VITALS (32 sets, daily range): BP systolic 102–156; BP diastolic 49–82
[2022-08-29] MEDS: polyvinyl alcohol ophthalmic drops 15ml bottle EACHEYE SCH ×8 (01:24→15:06)
[2022-08-29] MEDS: bicarb dialysis sol 2k/0 Ca2+ 5,000 ML HE SCH ×5 (02:18→07:12)
[2022-08-29 02:23] LABS: BASOPHILS % (AUTO) 0.1 % (0-1); EOSINOPHILS # (AUTO) 0.1 X10'3 (0-0.9); EOSINOPHILS % (AUTO) 0.8 % (0-6); HEMOGLOBIN 7.3 g/dl (12.0-16.0); LYMPHOCYTES # (AUTO) 0.9 X10'3 (1.1-4.8); LYMPHOCYTES % (AUTO) 6.1 % (21-51); MEAN CORPUSCULAR HEMOGLOBIN 27.9 PG (27.0-31.0); MEAN CORPUSCULAR HGB CONC 33.5 g/dL (33.0-36.5); MEAN CORPUSCULAR VOLUME 83.3 FL (78-98); MEAN PLATELET VOLUME 8.7 FL (7.4-10.4); MONOCYTES # (AUTO) 0.4 X10'3 (0-0.9); MONOCYTES % (AUTO) 2.9 % (2-12); NEUTROPHILS # (AUTO) 12.9 X10'3 (1.8-7.7); NEUTROPHILS % (AUTO) 90.1 % (42-75); PLATELET COUNT 51 X10'3 (140-440); RED BLOOD COUNT 2.62 X10'6 (4.20-5.60); RED CELL DISTRIBUTION WIDTH 15.1 % (11.5-14.5); WHITE BLOOD COUNT 14.3 X10'3 (4.5-11.0)
[2022-08-29] MEDS: piperacillin/tazo 3.375gm/50ml 50 ML IV SCH ×2 (02:28→10:05)
[2022-08-29 02:29] LABS: HEMATOCRIT 21.8 % (35.0-45.0)
[2022-08-29] MEDS: albuterol 2.5 MG/3 ML nebule NEB SCH ×6 (02:31→15:00)
--- NOTE | 2022-08-29 02:32 | NUR ---
coding quality coordinator notified of critical value on hematocrit of 21.8. Orders received to give one unit of PRBCs.
[2022-08-29 02:43] LABS: ALANINE AMINOTRANSFERASE 262 U/L (12-78); ALBUMIN 2.9 G/DL (3.4-5.0); ALKALINE PHOSPHATASE 142 IU/L (46-116); ASPARTATE AMINO TRANSFERASE 459 U/L (10-37); BILIRUBIN,TOTAL 2.4 MG/DL (0.1-1.0); BLOOD UREA NITROGEN 25 MG/DL (7-18); BUN/CREATININE RATIO 12.5 (6.6-38.0); CALCIUM 10.1 MG/DL (8.5-10.1); CKMB RELATIVE INDEX 0.9 RATIO (0-2.5); CREATINE KINASE 242 U/L (26-192); GLUCOSE 201 MG/DL (70-104); MAGNESIUM 2.1 MG/DL (1.5-2.4); TOTAL CARBON DIOXIDE 33.7 MMOL/L (24-32); TOTAL PROTEIN 5.9 G/DL (6.4-8.2); eGFR 30 ML/MIN
[2022-08-29 02:53] LABS: ANION GAP 10 (8-16); CHLORIDE 99 MMOL/L (99-107); POTASSIUM 3.3 MMOL/L (3.5-5.1); SODIUM 143 MMOL/L (135-145)
[2022-08-29] MEDS: calcium chloride inj. 10,000 MG in normal saline 500ml IV soln 400 ML IV PRN (03:39)
[2022-08-29] MEDS: citrate dextrose 1000ml IV sol 1,000 ML IV PRN ×2 (03:39→08:45)
[2022-08-29] MEDS: albumin (human) 25% 100ml IV 100 ML IV SCH (03:46)
[2022-08-29] MEDS ORDERED: potassium Cl 20mEq/100mL bag 100 ML IV ONE (03:50)
[2022-08-29] MEDS ORDERED: POTASSIUM BICARB 20meq eff tab 20 MEQ TABLET.EFF PO SCH (03:50)
[2022-08-29] MEDS ORDERED: insulin Lispro (HumaLOG) vial - multi-dose SQ SCH ×2 (03:55→08:45)
[2022-08-29] MEDS: LEVOTHYROXINE IV SCH (04:00)
[2022-08-29] MEDS: NORMAL SALINE IV SCH (04:00)
[2022-08-29] MEDS: ipratropium 0.5 MG/2.5ML nebule IH SCH ×3 (04:04→14:00)
[2022-08-29] MEDS: vasopressin inj. 40 UNIT in normal saline 50ml IV soln 38 ML IV PRN (04:47)
--- NOTE | 2022-08-29 04:56 | NUR ---
Titrating Neosinephrine as tolerated to keep MAP greater than 65. Temp 35.1. Blood warmer turned back on, covered patient with blanket. Keep temp between 35 and 36 degrees C per salon coordinator.
--- NOTE | 2022-08-29 06:24 | NUR ---
Problems reprioritized. Patient report given, questions answered & plan of care reviewed with Issa READ.
[2022-08-29] MEDS: epiNEPHrine 5 MG in NS 250ml IV.SOLN IV SCH (07:52)
[2022-08-29] MEDS: WATER IV SCH (08:27)
[2022-08-29] MEDS: pantoprazole 40MG/NS 100ML BAG 100 ML IV SCH (08:27)
[2022-08-29] MEDS: DEXTROSE 5% IV SCH (08:27)
[2022-08-29] MEDS: METHYLPREDNISOLONE SOD SUCC IV SCH (08:27)
[2022-08-29 08:34] LABS: HEMOGLOBIN 8.3 g/dl (12.0-16.0)
[2022-08-29 08:35] LABS: HEMATOCRIT 24.7 % (35.0-45.0); MEAN CORPUSCULAR HEMOGLOBIN 28.1 PG (27.0-31.0); MEAN CORPUSCULAR HGB CONC 33.5 g/dL (33.0-36.5); MEAN CORPUSCULAR VOLUME 83.9 FL (78-98); MEAN PLATELET VOLUME 8.5 FL (7.4-10.4); RED BLOOD COUNT 2.95 X10'6 (4.20-5.60); RED CELL DISTRIBUTION WIDTH 14.9 % (11.5-14.5); WHITE BLOOD COUNT 14.6 X10'3 (4.5-11.0)
[2022-08-29 08:39] LABS: PLATELET COUNT 45 X10'3 (140-440)
[2022-08-29 09:00] LABS: ALANINE AMINOTRANSFERASE 247 U/L (12-78); ALBUMIN 3.2 G/DL (3.4-5.0); ALBUMIN/GLOBULIN RATIO 1.1 (1.1-1.5); ALKALINE PHOSPHATASE 142 IU/L (46-116); ANION GAP 9 (8-16); ASPARTATE AMINO TRANSFERASE 447 U/L (10-37); BILIRUBIN,TOTAL 2.4 MG/DL (0.1-1.0); BLOOD UREA NITROGEN 23 MG/DL (7-18); CALCIUM 10.4 MG/DL (8.5-10.1); CHLORIDE 99 MMOL/L (99-107); CKMB RELATIVE INDEX 0.9 RATIO (0-2.5); CREATINE KINASE 216 U/L (26-192); CREATININE 1.77 MG/DL (0.40-0.90); GLUCOSE 193 MG/DL (70-104); MAGNESIUM 2.1 MG/DL (1.5-2.4); PHOSPHORUS 1.9 MG/DL (2.3-4.5); POTASSIUM 3.5 MMOL/L (3.5-5.1); SODIUM 139 MMOL/L (135-145); TOTAL CARBON DIOXIDE 31.4 MMOL/L (24-32); TOTAL PROTEIN 6.1 G/DL (6.4-8.2); eGFR 34 ML/MIN
[2022-08-29 09:24] LABS: HYPOCHROMASIA 1+; PLATELET ESTIMATE DECREASED; TOTAL CELLS COUNTED 100
[2022-08-29] MEDS: sodium phosphate inj. 30 MMOL in dextrose 5%-water 250 ML IV PRN (09:57)
[2022-08-29 13:01] LABS: BASOPHILS % (AUTO) 0.2 % (0-1); EOSINOPHILS % (AUTO) 0.2 % (0-6); HEMATOCRIT 27.1 % (35.0-45.0); HEMOGLOBIN 9.1 g/dl (12.0-16.0); LYMPHOCYTES # (AUTO) 0.7 X10'3 (1.1-4.8); LYMPHOCYTES % (AUTO) 5.5 % (21-51); MEAN CORPUSCULAR HEMOGLOBIN 28.6 PG (27.0-31.0); MEAN CORPUSCULAR HGB CONC 33.7 g/dL (33.0-36.5); MEAN CORPUSCULAR VOLUME 85.1 FL (78-98); MEAN PLATELET VOLUME 8.8 FL (7.4-10.4); MONOCYTES # (AUTO) 0.2 X10'3 (0-0.9); MONOCYTES % (AUTO) 1.9 % (2-12); NEUTROPHILS # (AUTO) 11.6 X10'3 (1.8-7.7); NEUTROPHILS % (AUTO) 92.2 % (42-75); RED BLOOD COUNT 3.18 X10'6 (4.20-5.60); RED CELL DISTRIBUTION WIDTH 15.9 % (11.5-14.5); WHITE BLOOD COUNT 12.6 X10'3 (4.5-11.0)
[2022-08-29 13:32] LABS: ALANINE AMINOTRANSFERASE 218 U/L (12-78); ALKALINE PHOSPHATASE 131 IU/L (46-116); ANION GAP 15 (8-16); ASPARTATE AMINO TRANSFERASE 417 U/L (10-37); BILIRUBIN,TOTAL 3.1 MG/DL (0.1-1.0); BLOOD UREA NITROGEN 23 MG/DL (7-18); BUN/CREATININE RATIO 12.7 (6.6-38.0); CALCIUM 10.3 MG/DL (8.5-10.1); CHLORIDE 100 MMOL/L (99-107); CKMB RELATIVE INDEX 0.7 RATIO (0-2.5); CREATINE KINASE 184 U/L (26-192); CREATININE 1.81 MG/DL (0.40-0.90); GLUCOSE 212 MG/DL (70-104); PHOSPHORUS 2.6 MG/DL (2.3-4.5); POTASSIUM 3.3 MMOL/L (3.5-5.1); SODIUM 146 MMOL/L (135-145); TOTAL CARBON DIOXIDE 31.3 MMOL/L (24-32); TOTAL PROTEIN 5.9 G/DL (6.4-8.2); eGFR 34 ML/MIN
[2022-08-29 13:34] LABS: PLATELET COUNT 41 X10'3 (140-440)
[2022-08-29 13:50] LABS: CLARITY,URINE CLOUDY (Clear); COLOR,URINE YELLOW (Yellow); GLUCOSE, URINE NEGATIVE (Neg); KETONES,URINE NEGATIVE (Neg); LEUKOCYTE ESTERASE ,URINE SMALL (Neg); NITRITES, URINE NEGATIVE (Neg); OCCULT BLOOD,URINE LARGE (Neg); PROTEIN,URINE 100 mg/dl (Neg); UA COLLECTION TYPE NON-SPECIFIED; UROBILINOGEN,URINE 0.2 E.U/dL (0.2-1.0)
[2022-08-29] MEDS: potassium Cl 20mEq/100mL bag 100 ML IV PRN ×2 (13:50→14:41)
[2022-08-29] MEDS ORDERED: insulin Lispro (HumaLOG) vial - multi-dose SQ ONE (14:10)
[2022-08-29 14:37] LABS: TRANSITIONAL EPI CELLS,URINE MANY /HPF
[2022-08-29 14:39] LABS: BACTERIA,URINE FEW /HPF (Neg); MUCUS STRANDS FEW /LPF (Neg); SQUAMOUS EPITHELIAL CELL,UR MODERATE /LPF (FEW)
[2022-08-29 14:40] LABS: RBC,URINE 50-100 /HPF (0-2)
--- NOTE | 2022-08-29 15:38 | NUR ---
Nahomy RN with [facility] at bedside. Report given by RN and donor network, CCT questions/concerns answered prior to transporting pt.
== END 2022-08-29 15:22 | DRG 720 ==
LOC: ER 19:29 → ED HOLD 22:27 → EDBEDREQ 22:59 → EDBEDREQTM 22:59 → CICU 2S 23:45
PROVIDERS: ADMIT Internal Medicine; ATTEND Internal Medicine
PROC: 5A1955Z Respiratory Ventilation, Greater than 96 Consecutive Hours (ICD-10-PCS; principal; 2022-08-24)
PROC: 0BH17EZ Insertion of Endotracheal Airway into Trachea, Via Natural or Artificial Opening (ICD-10-PCS; 2022-08-24)
PROC: 06HY33Z Insertion of Infusion Device into Lower Vein, Percutaneous Approach (ICD-10-PCS; 2022-08-24)
PROC: C0101ZZ Planar Nuclear Medicine Imaging of Brain using Technetium 99m (Tc-99m) (ICD-10-PCS; 2022-08-25)
PROC: 4A00X4Z Measurement of Central Nervous Electrical Activity, External Approach (ICD-10-PCS; 2022-08-25)
PROC: 30233N1 Transfusion of Nonautologous Red Blood Cells into Peripheral Vein, Percutaneous Approach (ICD-10-PCS; 2022-08-26)
PROC: 03HY32Z Insertion of Monitoring Device into Upper Artery, Percutaneous Approach (ICD-10-PCS; 2022-08-26)
PROC: 5A1D90Z Performance of Urinary Filtration, Continuous, Greater than 18 hours Per Day (ICD-10-PCS; 2022-08-27)
PROC: 5A1D90Z Performance of Urinary Filtration, Continuous, Greater than 18 hours Per Day (ICD-10-PCS; 2022-08-28)
PROC: 30233R1 Transfusion of Nonautologous Platelets into Peripheral Vein, Percutaneous Approach (ICD-10-PCS; 2022-08-29)
PROC: 5A1D90Z Performance of Urinary Filtration, Continuous, Greater than 18 hours Per Day (ICD-10-PCS; 2022-08-29)
DX: A41.9 Sepsis, unspecified organism (principal); I46.9 Cardiac arrest, cause unspecified; J96.01 Acute respiratory failure with hypoxia; G93.1 Anoxic brain damage, not elsewhere classified; K72.00 Acute and subacute hepatic failure without coma; Z20.822 Contact with and (suspected) exposure to COVID-19; R65.21 Severe sepsis with septic shock; E87.20 Acidosis, unspecified; F31.9 Bipolar disorder, unspecified; F41.9 Anxiety disorder, unspecified; R94.01 Abnormal electroencephalogram [EEG]; J45.909 Unspecified asthma, uncomplicated; N17.9 Acute kidney failure, unspecified; Z87.891 Personal history of nicotine dependence; Z79.899 Other long term (current) drug therapy; Z91.018 Allergy to other foods
CPT/HCPCS: 31628; 31645; 36415; 36430; 36600; 71045; 72170; 76700; 78606; 80053; 80069; 80320; 80329; 81001; 82009; 82150; 82248; 82550; 82553; 82570; 82803; 82948; 83036; 83605; 83690; 83735; 83880; 84100; 84145; 84156; 84300; 84443; 84484; 85007; 85018; 85025; 85027; 85379; 85610; 85730; 86885; 86900; 86901; 86920; 87040; 87077; 87081; 87088; 87186; 87635; 93005; 93306; 94003; 94640; 94760; 95816; 96365; 96367; 96375; 99285; A6196; A6213; A6258; A6402; A6449; A7015; A7526; A9521; C1751; C1752; C9113; C9803; E1594; G0378; J0171; J0295; J0610; J1120; J1815; J1940; J2370; J2543; J2930; J3475; J3480; J3490; J7030; J7040; J7050; J7060; J7070; P9016; P9035; P9045; P9047